=== PATIENT | female | born 1980 | race Caucasian/White ===

== ENCOUNTER → 2017-08-20 09:23 | Outpatient (CLI) | payer OTHER, SELFPAY ==
--- NOTE | 2017-08-20 09:28 | BI_ITS ---
MAMMOGRAPHY - BILATERAL DIAGNOSTIC REASON FOR EXAM: Female, 37 years old. CURRENT LT BB SIZED LUMP 1 MONTH PERTINENT HISTORY: BILAT DX - FAM HX OF PAT AUNT @ AGE 52 - LT INTRADUCTAL PAPILLOMA REMOVED 2008 - BREAST MRI IN THE PAST TECHNIQUE: Digital bilateral breast dilcia (3D mammographic acquisition) in the CC and MLO projections. 2-D mediolateral oblique (MLO) and craniocaudad (CC) views of both breasts were obtained. CAD: Full Field Digital Mammography with Computer Added Detection was performed. COMPARISON: None. FINDINGS: Breast Composition: The breasts are extremely dense, which lowers the sensitivity of mammography. There are no dominant masses or suspicious calcifications. The clinically palpable mass is not identified in this study further evaluation by ultrasound is recommended and would be performed on the same day. No other significant abnormalities are identified. BI/DIAG MAMM W/CAD, BILAT IMPRESSION: Further ultrasonographic evaluation recommended, as described above. (I) ASSESSMENT CATEGORY: BIRADS Category 0: Incomplete. Need additional imaging evaluation. A letter regarding these results will be sent to the patient by the facility within 30 days. Approximately 10% of breast cancers are not detected by mammography. A normal mammogram should not delay biopsy of a clinically suspicious abnormality. Electronically Signed: Iram Galicia MD at 12:24 EDT Tel , Service support ,
--- NOTE | 2017-08-20 09:29 | US_ITS ---
STUDY: ULTRASOUND BREAST - LEFT REASON FOR EXAM: Female, 37 years old. LT BRST- PALPABLE LUMP TECHNIQUE: Axial and longitudinal images of the LEFT breast were performed with a high resolution ultrasound transducer. COMPARISON: None. FINDINGS: LEFT Breast: There is a lesion in the upper part. The lesion measures 0.4 x 0.3 x 0.2 cm in size. Clock notation: 12 o'clock position. Distance from nipple: 1 cm. Posterior Enhancement: Yes. Posterior Shadowing: None. Margins: Sharp and smooth. Echogenicity: Anechoic. Compression effect on Shape: No change. US/Breast Limited Unilateral IMPRESSION: Benign appearing cyst in the area of palpable abnormality. ASSESSMENT CATEGORY: BIRADS Category 2: Benign. A letter regarding these results will be sent to the patient by the facility within 30 days. Electronically Signed: Iram Galicia MD at 15:33 EDT Tel , Service support ,
== END ==
PROVIDERS: Family Provider Family Medicine; PCP Family Medicine
DX: N63.0 Unspecified lump in unspecified breast (principal)
CPT/HCPCS: 76642; 77062; 77066; G0279

== ENCOUNTER → 2019-08-08 09:17 | Outpatient (CLI) | payer OTHER, SELFPAY ==
[2018-06-12 06:41] VITALS: BMI 22.6
--- NOTE | 2019-08-08 09:21 | BI_ITS ---
MAMMOGRAPHY - BILATERAL DIAGNOSTIC REASON FOR EXAM: Female, 39 years old. Left breast lump. PERTINENT HISTORY: History of prior excision of a left intraductal papilloma. TECHNIQUE: Digital bilateral breast dilcia (3D mammographic acquisition) in the CC and MLO projections. 2-D mediolateral oblique (MLO) and craniocaudad (CC) views of both breasts were obtained. CAD: Full Field Digital Mammography with Computer Added Detection was performed. COMPARISON: Comparison is made with prior study dated 04/22/2017 and October 07, 2012. FINDINGS: Breast Composition: The breasts are extremely dense, which lowers the sensitivity of mammography. There are no dominant masses or suspicious calcifications. No other significant abnormalities are identified. There has been no significant change since the prior study. BI/DIAG MAMM W/CAD, BILAT IMPRESSION: With the patient''s history of a palpable lump in the left breast, correlation with ultrasound is recommended. ASSESSMENT CATEGORY: BIRADS Category 0: Incomplete. Need additional imaging evaluation. A letter regarding these results will be sent to the patient by the facility within 30 days. Approximately 10% of breast cancers are not detected by mammography. A normal mammogram should not delay biopsy of a clinically suspicious abnormality. Electronically Signed: Anuj Rivera, at 12:28 EDT , Service support ,
--- NOTE | 2019-08-08 10:01 | US_ITS ---
STUDY: ULTRASOUND BREAST - LEFT REASON FOR EXAM: Female, 39 years old. Palpable lump left breast. TECHNIQUE: Axial and longitudinal images of the LEFT breast were performed with a high resolution ultrasound transducer. # OF IMAGES: 52 COMPARISON: Comparison is made with prior mammogram done earlier in the day as well as prior sonogram of the left breast dated August 20, 2017. FINDINGS: LEFT Breast: The upper outer quadrant of the left breast was examined by ultrasound. There is a 6 mm x 5 mm x 7 mm cyst at the 1:00 position of the breast at 3 cm from the nipple. There is also evidence of a 3 mm x 4 mm x 2 mm cyst at the 2:00 position of the breast at 4 cm from the nipple. Dense fibroglandular tissue. US/Breast Limited Unilateral IMPRESSION: 2 subcentimeters cysts are seen in the upper outer quadrant of the left breast. ASSESSMENT CATEGORY: BIRADS Category 2: Benign. A letter regarding these results will be sent to the patient by the facility within 30 days. Electronically Signed: Anuj Rivera, at 12:44 EDT , Service support ,
== END ==
PROVIDERS: PCP Family Medicine
DX: N63.21 Unspecified lump in the left breast, upper outer quadrant (principal)
CPT/HCPCS: 76642; 77062; 77066; G0279

== ENCOUNTER → 2022-02-03 | Outpatient (CLI) | payer OTHER, SELFPAY ==
--- NOTE | 2022-02-03 12:37 | VDLE_ITS ---
Reason For Study: LLE pain RIGHT LEFT CFV is compressible, spontaneous, phasic, competent GSV is normal. and demonstrates normal augmentation. CFV is compressible, spontaneous, Procedure phasic, competent, and demonstrates This is a venous duplex using B-mode, color flow normal augmentation. and spectral Doppler. FV is compressible, spontaneous, phasic, Exam performed in department. 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 augmentation. The exam was diagnostic. POP V is compressible, spontaneous, A preliminary report was called and/or faxed to phasic, competent and demonstrates Ashley Wallace:Hugh Edmonds. normal augmentation. T/P Trunk is compressible. PTV is compressible. LT PerV is compressible. VL/Venous Duplex US, Unilateral Interpretation Summary Deep veins of the left lower extremity are patent and compressible segmentally. There is no evidence of left lower extremity deep vein thrombosis. Valvular competence appears intac t within the proximal deep venous system on the left . The left great saphenous vein appears patent a nd compressible segmentally. Ordering Physician: ASHLEY WALLACE Referring Physician: Santiago Edmonds Performed By: Fanta Toledo, NEERAJ, RVT
[2022-02-03 14:59] LABS: Hematocrit 40.4 % (37-47); Hemoglobin 13.1 g/dL (12.0-15.0); Mean Corp Hgb Conc 32.4 g/dL (32-36); Mean Corpuscular Hgb 29.5 pg (27.0-32.0); Mean Platelet Vol. 11.4 fl (6.2-12.0); Platelet Count 200 K/mm3 (150-450); RBC Distribution Width CV 12.5 % (11.6-14.6); RBC Distribution Width SD 41.5 fl (35.1-43.9); Red Blood Count 4.44 M/mm3 (4.2-5.4); White Blood Count 10.3 K/mm3 (4.4-11.0)
[2022-02-03 15:18] LABS: AST(SGOT) 16 U/L (15-37); Alanine Aminotransfer ALT/SGPT 20 U/L (13-56); Albumin, Serum 3.6 g/dL (3.2-5.0); Alkaline Phosphatase 74 U/L (45-117); Anion Gap 8 (5-15); BUN 5 mg/dL (7-18); BUN/Creat Ratio 6.4 RATIO (10-20); Chloride 104 mmol/L (98-107); Creatinine, Serum 0.78 mg/dL (0.55-1.02); EST Glomerular Filtration Rate 87 mL/min (>60); Est Glom Filt Rate - Afr Amer 106 mL/min (>60); Globulin 3.6 g/dL (2.2-4.2); Glucose 91 mg/dL (74-106); Potassium 4.1 mmol/L (3.5-5.1); Protein, Total 7.2 g/dL (6.4-8.2); Sodium Level 140 mmol/L (136-145)
== END | disposition home or self-care (01) ==
PROVIDERS: PCP Family Medicine; Referring Provider Nurse Practitioner Family; Visit Provider Nurse Practitioner Family
DX: M79.605 Pain in left leg (principal); U07.1 COVID-19; R60.0 Localized edema
CPT/HCPCS: 36415; 80053; 85027; 85379; 86140; 93971

== ENCOUNTER → 2023-11-23 | Outpatient (CLI) | payer BC, SELFPAY ==
[2023-11-23 15:50] LABS: Absolute Lymphocyte Count 1.83 X10^3/uL (0.83-4.51); Absolute Neutrophil Count 4.1 X10^3/uL (2.0-7.7); Basophil# 0.02 X10^3/uL; Basophil% 0.3 % (0-1); Eosinophil# 0.17 X10^3/uL; Eosinophils% 2.6 % (0-5); Hematocrit 41.2 % (37-47); Hemoglobin 13.5 g/dL (12.0-15.0); Lymphocyte # 1.83 X10^3/ul (0.83-4.51); Lymphocyte % 27.9 % (19-41); Mean Corp Hgb Conc 32.8 g/dL (32-36); Mean Corpuscular Hgb 29.2 pg (27.0-32.0); Mean Corpuscular Volume 89.2 fL (81-99); Mean Platelet Vol. 11.3 fl (6.2-12.0); Monocyte# 0.38 X10^3/uL; Monocyte% 5.8 % (0-10); NRBC Flagged by Analyzer 0 % (0-5); Neutrophil # 4.14 X10^3/uL (2.7-7.7); Neutrophil % 63.1 % (47-70); Platelet Count 194 K/mm3 (150-450); RBC Distribution Width SD 39.2 fl (35.1-43.9); Red Blood Count 4.62 M/mm3 (4.2-5.4); White Blood Count 6.6 K/mm3 (4.4-11.0)
[2023-11-23 16:05] LABS: Erythrocyte Sedimentation Rate 1 mm/hr (0-30)
[2023-11-23 16:41] LABS: AST(SGOT) 17 U/L (15-37); Alanine Aminotransfer ALT/SGPT 24 U/L (13-56); Albumin, Serum 3.9 g/dL (3.2-5.0); Alkaline Phosphatase 83 U/L (45-117); Anion Gap 5 (5-15); BUN 14 mg/dL (7-18); BUN/Creat Ratio 15.9 RATIO (10-20); CRP < 2.90 mg/L (0.0-3.0); Calcium,Total 9.2 mg/dL (8.5-10.1); Chloride 106 mmol/L (98-107); Creatinine, Serum 0.88 mg/dL (0.55-1.02); EST Glomerular Filtration Rate 75 mL/min (>60); Est Glom Filt Rate - Afr Amer 91 mL/min (>60); Free T3 2.7 pg/mL (2.18-3.98); Glucose 92 mg/dL (74-106); LDH 159 U/L (84-246); Potassium 3.6 mmol/L (3.5-5.1); Protein, Total 7.9 g/dL (6.4-8.2); Sodium Level 138 mmol/L (136-145); T4 Free Direct 1.06 ng/dL (0.76-1.46); Thyroid Stim Hormone (TSH) 0.888 uIU/mL (0.358-3.740)
[2023-11-28 02:06] LABS: Anti-Centromere B Ab <0.2 AI (0.0-0.9); Anti-Chromatin <0.2 AI (0.0-0.9); Anti-Jo <0.2 AI (0.0-0.9); Anti-Scleroderma-70 AB <0.2 AI (0.0-0.9); Anti-dsDNA Ab 4 IU/mL (0-9); Beef <0.10 kU/L (Class 0); Chocolate <0.10 kU/L (Class 0); Codfish <0.10 kU/L (Class 0); Corn 0.21 kU/L (Class 0/I); Egg, Whole <0.10 kU/L (Class 0); Milk (Cow) <0.10 kU/L (Class 0); Mussels <0.10 kU/L (Class 0); Peanut 0.13 kU/L (Class 0/I); Pork 0.85 kU/L (Class II); RNP Ab 0.2 AI (0.0-0.9); SJOGREN'S Anti-SS-A test < 0.2 AI (0.0-0.9); SJOGREN'S Anti-SS-B test < 0.2 AI (0.0-0.9); Salmon <0.10 kU/L (Class 0); Shrimp <0.10 kU/L (Class 0); Smith Ab <0.2 AI (0.0-0.9); Soybean 0.13 kU/L (Class 0/I); Tuna <0.10 kU/L (Class 0); Wheat 0.21 kU/L (Class 0/I)
[2023-11-29 15:08] LABS: ACCA 5 units (0-90); ALCA 4 units (0-60); AMCA 29 units (0-100); Albumin 4.4 g/dL (2.9-4.4); Alpha-1-Globulins 0.2 g/dL (0.0-0.4); Alpha-2-Globulins 0.6 g/dL (0.4-1.0); Cytoplasmic Ab (C-ANCA) <1:20 titer (Neg:<1:20); Endomysial Antibody IgA Negative (Negative); Gamma Globulin 1.5 g/dL (0.4-1.8); Immunoglobulin A 135 mg/dL (87-352); Immunoglobulin E 139 IU/mL (6-495); Immunoglobulin G 1646 mg/dL (586-1602); Immunoglobulin M 133 mg/dL (26-217); PROEL- TOTAL PROTEIN 7.7 g/dL (6.0-8.5); Perinuclear Ab (P-ANCA) <1:20 titer (Neg:<1:20); gASCA 22 units (0-50); t-Transglutaminase IgA <2 U/mL (0-3)
== END | disposition home or self-care (01) ==
LOC: LAB 14:57
PROVIDERS: PCP Registered Nurse
DX: R19.7 Diarrhea, unspecified (principal)
CPT/HCPCS: 36415; 80053; 82784; 82785; 83516; 83615; 84165; 84439; 84443; 84481; 85025; 85652; 86003; 86005; 86036; 86140; 86225; 86235; 86255; 86256; 86334; 86671

== ENCOUNTER → 2023-11-25 | Outpatient (CLI) | payer BC, SELFPAY ==
[2023-11-29 03:06] LABS: Pancreatic Elastase, Fecal > 800 (>200)
[2023-11-30 22:07] LABS: Calprotectin, Stool 10 ug/g (0-120)
== END | disposition home or self-care (01) ==
LOC: LABSPEC 13:32
PROVIDERS: PCP Registered Nurse
DX: R19.7 Diarrhea, unspecified (principal)
CPT/HCPCS: 82653; 83630; 83993

== ENCOUNTER → 2023-12-31 | Outpatient (CLI) | payer BC, SELFPAY ==
--- OUTSIDE RECORDS SUMMARY | 2023-12-31 07:06 | XMS RPT_ITS | CCD ---
Author Organization [facility] Care Team Providers Care Adon Name Role Phone JOAQUIM KYES Primary Care Physician Hugh Edmonds MD Primary Care Provider Hugh Edmonds MD Primary Care Provider Hugh Edmonds MD Primary Care Provider Hugh Edmonds MD Primary Care Provider Hugh Edmonds MD Primary Care Provider TIKI FOX Referring Unavailable IRINA, MAHENDRAER B Primary Care Unavailabl e WISWELL, TIKI Referring Unavailable IRINA, MAHENDRAER B Primary Care Unavailabl e DOMINIQUE, TIKI Attending Unavailable IRINA, MAHENDRAER B Primary Care Unavailabl e WISWELL, TIKI Referring Unavailable IRINA, AFUAOPHER B Primary Care Unavailabl e WISWELL, TIKI Referring Unavailable RANHEYDI, AFUAOPHER B Primary Care Unavailabl e WISWELL, TIKI Referring Unavailable RANHEYDI, CHRISTOPHER B Primary Care Unavailabl e DOMINIQUE, TIKI Attending Unavailable IRINA, MAHENDRAER B Primary Care Unavailabl e PETE HURTADO Referring Unavailable IRINA, MAHENDRAER B Primary Care Unavailabl e BALJINDER HERNANDEZ Primary Care Physi carla BALJINDER HERNANDEZ Attending Un available BALJINDER HERNANDEZ Primary Care Un available BALJINDER HERNANDEZ Primary Care Un available BALJINDER HERNANDEZ Attending Un available Allergies Allergy Classification Reported Allergen(s) Allergy Type Date of Onset Reaction(s) Facility (16 sources) Metoclopramide; Translations: [metoclopramide] Drug Allergy 10-13-201 1 Alteration in heart rate (finding), Other: See Comments [facility] Work Phone: (5 sources) Sulfonamides (Antibiotic); Translations: [sulfa drugs] Drug allergy Weal (disorder) [facility] Work Phone: (11 sources) Sulfamethoxazole / Trimethoprim; Translations: [SULFAMETHOXAZOLE-TR IMETHOPRIM] Drug Allergy 6 Hives [facility] Work Phone: Medications Current Medications Medication Drug Class(es) Dates Sig (Normalized) Sig (Original) azithromycin 250 mg oral tablet (1 source) Macrolide Antimicrobial Start: 02-04-2022 End: 02-09-2022 azithromycin 250 mg oral tablet Take two (2) tablets day 1-then one (1) tablet, Oral, Daily, X 5 day(s), # 6 tab(s), 0 Refill(s), 02/09/22 11:09:00 EST, Pharmacy: [id number], Acute tonsillitis, 167.6, cm, 05/21/21 9:26:00 EDT, Height, 72.7 Start Date: 02/04/22 Stop Date: 02/09/22 Status: Ordered cetirizine hydrochloride 10 mg oral tablet (8 sources) Histamine-1 Receptor Antagonist Start: 02-01-2022 End: 03-23-2024 Zyrtec 10 mg oral tablet Dose : 10 mg = 1 tab(s), Oral, qDay, # 90 tab(s), 3 Refill(s), Pharmacy: [facility], Allergies, 167.6, cm, 03/29/23 13:00:00 EST, Height, kg, 03/29/23 13:00:00 EST, Dosing Weight Start Date: 03/29/23 Stop Date: 03/23/24 Status: Ordered Comment on above: Take 10 mg by mouth once daily. sertraline 50 mg oral tablet (2 sources) Serotonin Reuptake Inhibitor Start: 06-28-2021 End: 06-23-2022 sertraline 25 mg oral tablet Dose : 25 mg = 1 tab(s), Oral, qDay, # 90 tab(s), 3 Refill(s), Pharmacy: [id number], 167.6, cm, 05/21/21 9:26:00 EDT, Height Start Date: 06/28/21 Stop Date: 06/23/22 Status: Ordered Start: 06-28-2021 End: 06-23-2022 sertraline 50 mg oral tablet Dose : 50 mg = 1 tab(s), Oral, qDay, # 90 tab(s), 3 Refill(s), Pharmacy: [facility], 167.6, cm, 05/21/21 9:26:00 EDT, Height, kg, 05/21/21 9:26:00 EDT, Dosing Weight Start Date: 06/28/21 Stop Date: 06/23/22 Status: Ordered traZODone hydrochloride 50 mg oral tablet (1 source) Serotonin Reuptake Inhibitor Start: 08-14-2020 traZODone 50 mg oral tablet Dose : 50 mg = 1 tab(s), Oral, qHS, # 30 tab(s), 0 Refill(s), Pharmacy: [facility]/pharmacy #[id number], 167.6, cm, 03/25/20 15:37:00 EST, Height, kg, 03/25/20 15:37:00 EST, Dosing Weight Start Date: 08/14/20 Status: Ordered Completed/Discontinued Medications Medication Drug Class(es) Dates Sig (Normalized) Sig (Original) 24 hr buPROPion hydrochloride 150 mg extended release oral tablet (11 sources) Aminoketone Start: 09-01-2023 End: 10-31-2023 Wellbutrin XL 150 mg/24 hours oral tablet, extended release Dose : 150 mg = 1 tab(s), Oral, q24h, Discontinue 300 mg tablet and start 150 mg, plan to try for at least 1 month then may need to adjust, # 30 tab(s), 1 Refill(s), Pharmacy: [facility], LELA (generalized anxiety disorder), 167.6, cm, 03/29/23 13:00:00 EST, Height, kg, 03/29/23 13:00:00 EST, Dosing Weight Start Date: 09/01/23 Stop Date: 10/31/23 Status: Ordered Start: 03-29-2023 End: 03-23-2024 take 1 tablet by mouth every hour, then take 1 tablet by mouth every twenty-four hours buPROPion 300 mg/24 hours (XL) oral tablet, extended release Dose : 300 mg = 1 tab(s), Oral, q24h, # 90 tab(s), 3 Refill(s), Pharmacy: [facility], 167.6, cm, 03/29/23 13:00:00 EST, Height, kg, 03/29/23 13:00:00 EST, Dosing Weight Start Date: 03/29/23 Stop Date: 03/23/24 Status: Ordered Start: 12-09-2021 End: 06-07-2022 take 1 tablet by mouth every hour, then take 1 tablet by mouth every twenty-four hours Wellbutrin XL 150 mg/24 hours oral tablet, extended release Dose : 150 mg = 1 tab(s), Oral, q24h, # 90 tab(s), 1 Refill(s), Pharmacy: [facility], LELA (generalized anxiety disorder), 167.6, cm, 05/21/21 9:26:00 EDT, Height, kg, 05/21/21 9:26:00 EDT, Dosing Weight Start Date: 12/09/21 Stop Date: 06/07/22 Status: Ordered Start: 08-28-2021 take 1 tablet by mouth once da mateusz buPROPion XL (WELLBUTRIN XL) 300 mg 24 hr tablet Take 300 mg by mouth once daily. 0 08/28/2021 Active Comment on above: Take 300 mg by mouth once daily. Lactobacillus acidophilus (10 sources) LACTOBACILLUS ACIDOPHILUS (PROBIOTIC ORAL) Take by mouth. 0 Active Comment on above: Take by mouth. multivitamin tablet (10 sources) take 1 tablet by mouth once daily multivitamin tablet Take 1 tablet by mouth once daily. 0 Active Comment on above: Take 1 tablet by anabelle th once daily. Surgical Lubricant Jelly gel (4 sources) Start: 02-19-20 Surgical Lubricant Jelly gel For MRI Female Pelvis, MRI department to provide. Administer intra-vaginal Surgilube immediately prior the MRI procedure (total amount to patient toleranace). 3 g 0 02/18/2023 Active Comment on above: For MRI Female Pelvi s, MRI department to provide. Administer intra-vaginal Surgilube immediately prior the MRI procedure (total amount to patient toleranace). Problems Active Problems Problem Classification Problem Date Documented Date Episodic/Chronic Immunizations and screening for infectious disease (4 sources) Patient encounter status; Translations: [Encounter for screening for human papillomavirus (HPV)] Episodic Mood disorders (12 sources) Major depressive disorder; Translations: [Major depressive disorder, single episode, unspecified] Onset: 09-28-2011 09-28-2011 Chronic Noninfectious gastroenteritis (2 sources) Noninfective gastroenteritis and colitis, unspecified; Translations: [Noninfective gastroenteritis and colitis, unspecified] Onset: 11-04-2023 Episodic Nonmalignant breast conditions (10 sources) Fibrocystic disease of breast; Translations: [Diffuse cystic mastopathy of unspecified breast] Onset: 11-22-2006 11-22-2006 Chronic Other connective tissue disease (3 sources) Pain in left lower limb 02-03-2022 Episodic Other female genital disorders (1 source) Vaginal discharge; Translations: [Other specified noninflammatory disorders of vagina] Episodic Other female genital disorders (1 source) History of gynecological disorder; Translations: [Personal history of other diseases of the female genital tract] 06-11-2023 Episodic Other screening for suspected conditions (not mental disorders or infectious disease) (8 sources) D-dimer above reference range; Translations: [Elevated C-reactive protein] Onset: 06-25-2022 02-06-2022 Episodic Residual codes; unclassified (3 sources) Edema of left lower limb 02-03-2022 Episodic Residual codes; unclassified (1 source) Family history of endometriosis in first degree relative; Translations: [Family history of other diseases of the genitourinary system] 06-11-2023 Episodic Unclassified (2 sources) Patient encounter status 03-29-2023 Viral infection (3 sources) Disease caused by 2019-nCoV 02-03-2022 Past or Other Problems Problem Classification Problem Date Documented Da te Episodic/Chronic Abdominal pain (15 sources) Chronic pelvic pain of female; Translations: [Pelvic and perineal pain] Onset: 02-03-2017 02-03-2017 Episodic Ovarian cyst (1 source) Other ovarian cyst, unspecified side; Translations: [Ovarian cyst, complex] Onset: 02-22-2023 Episodic Results Test Name Value Interpretation Reference Range Facility [facility] 11-05-2023 Adenovirus F 40/41 Not detected Normal Not Detected [facility] ([place]) Comment on above: Performed By: #### S TGIPCR #### [place] [address] #### CDIFPCR #### [address] [address] Astrovirus Not detected Normal Not Detected Pending sale to [facility] ([place]) Comment on above: Performed By: #### S TGIPCR #### [place] [address] #### CDIFPCR #### [address] [address] Campy (jejuni/coli/ups) Not detected Normal Not Detected [facility] ([place]) Comment on above: Performed By: #### S TGIPCR #### [place] [address] #### CDIFPCR #### [address] [address] Cryptosporidium Not detected Normal Not Detected [facility] ([place]) Comment on above: Performed By: #### S TGIPCR #### [place] [address] #### CDIFPCR #### [address] [address] Cyclospora Not detected Normal Not Detected Pending sale to [facility] ([place]) Comment on above: Performed By: #### S TGIPCR #### [place] [address] #### CDIFPCR #### [address] [address] E. coli (ETEC) Not detected Normal Not Detected [facility] ([place]) Comment on above: Performed By: #### S TGIPCR #### [place] [address] #### CDIFPCR #### [address] [address] E. coli O157 Not Applicable Normal Not Detected [facility] ([place]) Comment on above: Performed By: #### S TGIPCR #### [place] [id number] #### CDIFPCR #### [address] [address] Entamoeba histolytica Not detected Normal Not Detected [facility] ([place]) Comment on above: Performed By: #### S TGIPCR #### [place] [address] #### CDIFPCR #### [address] [address] Enteroaggregative E. coli (EAEC) Not detected Normal Not Detected [facility] ([place]) Comment on above: Performed By: #### S TGIPCR #### [place] [address] #### CDIFPCR #### [address] [address] Enteropathogenic E. coli (EPEC) Not detected Normal Not Detected [facility] ([place]) Comment on above: Performed By: #### S TGIPCR #### [place] [address] #### CDIFPCR #### [address] [address] Giardia lamblia Not detected Normal Not Detected [facility] ([place]) Comment on above: Performed By: #### S TGIPCR #### [place] [id number] #### CDIFPCR #### [address] [address] Norovirus GI/GII Not detected Normal Not Detected [facility] ([place]) Comment on above: Result Comment: T he dowel setting machine operator of the Stool GI PCR panel has identified an increase of potential false positive results for Norovirus. A Norovirus positive result should correlate with the patient?s clinical history and presentation, along with travel history and disease severity. Performed By: #### S TGIPCR #### [place] [address] #### CDIFPCR #### [address] [address] Plesiomonas shigelloides Not detected Normal Not Detected [facility] ([place]) Comment on above: Performed By: #### S TGIPCR #### [place] [address] #### CDIFPCR #### [address] [address] Rotavirus A Not detected Normal Not Detected [facility] ([place]) Comment on above: Performed By: #### S TGIPCR #### [place] [address] #### CDIFPCR #### [address] [address] Salmonella species, stool Not detected Normal Not Detected [facility] ([place]) Comment on above: Performed By: #### S TGIPCR #### [place] [address] #### CDIFPCR #### [address] [address] Sapovirus I,II,IV,V Not detected Normal Not Detected A [facility] ([place]) Comment on above: Performed By: #### S TGIPCR #### [place] [address] #### CDIFPCR #### [address] [address] Shig Tox E. coli (STEC) Not detected Normal Not Detected [facility] ([place]) Comment on above: Performed By: #### S TGIPCR #### [place] [address] #### CDIFPCR #### [address] [address] Shigella/Enteroinvasi ve E. coli (EIEC) Not detected Normal Not Detected [facility] ([place]) Comment on above: Performed By: #### S TGIPCR #### [place] [id number] #### CDIFPCR #### [place] [address] Stool GI Comment See Comment Normal [facility] ([place]) Comment on above: Result Comment: Viru s, bacteria, and parasite nucleic acid may persist in vivo independently of organism viability. Negative Film Array GI panel results in the setting of clinical illness compatible with gastroenteritis may be due to infection by pathogens that are not detected by this test. False negatives may occur due to genetic variability in the region targeted by the primers. Performed By: #### S TGIPCR #### [place] [address] #### CDIFPCR #### [place] [address] Vibrio cholerae Not detected Normal Not Detected [facility] ([place]) Comment on above: Performed By: #### S TGIPCR #### [place] [address] #### CDIFPCR #### [place] [address] Vibrio par/vul/chol Not detected Normal Not Detected A [facility] ([place]) Comment on above: Performed By: #### S TGIPCR #### [place] [address] #### CDIFPCR #### [place] [address] Yersinia enterocolitica Not detected Normal Not Detected [facility] ([place]) Comment on above: Performed By: #### S TGIPCR #### [place] [address] #### CDIFPCR #### [place] [address] CDIFPCRon 11-04-2023 Clostridium difficile PCR Negative Normal Negative [facility] ([place]) Comment on above: Performed By: #### S TGIPCR #### [place] [address] #### CDIFPCR #### [place] [address] Clostridium difficile PCR Int Normal [facility] ([place]) Comment on above: Result Comment: No t cdB gene DNA detected. Negative test results may occur from improper collection, handling or storage of specimen, technical error, or extremely low levels of target below the limit of detection of the assay. See Below Performed By: #### S TGIPCR #### [place] [id number] #### CDIFPCR #### [facility] [address], [place] [address] LABORATORYOrdered By: Haven Amezcua on 11-04-2023 Adenovirus 40+41 DNA ALBERTINA+non-probe Ql (Stl) Not Detected *NA* (11/04/23 2:53 PM) Invalid Interpretation Code Not Detected AH Auto Microbiology GL SS Astrovirus subtypes 1-8 RNA ALBERTINA+non-probe Ql (Stl) Not Detected *NA* (11/04/23 2:53 PM) Invalid Interpretation Code Not Detected AH Auto Microbiology GL SS C. cayetanensis DNA ALBERTINA+non-probe Ql (Stl) Not Detected *NA* (11/04/23 2:53 PM) Invalid Interpretation Code Not Detected AH Auto Microbiology GL SS C. coli+jejuni+upsaliens is DNA ALBERTINA+non-probe Ql (Stl) Not Detected *NA* (11/04/23 2:53 PM) Invalid Interpretation Code Not Detected AH Auto Microbiology GL SS Cryptosporidium sp DNA ALBERTINA+non-probe Ql (Stl) Not Detected *NA* (11/04/23 2:53 PM) Invalid Interpretation Code Not Detected AH Auto Microbiology GL SS E. coli enteroaggregative Toñito plasmid aggR+aatA genes ALBERTINA+non-probe Ql (Stl) Not Detected *NA* (11/04/23 2:53 PM) Invalid Interpretation Code Not Detected AH Auto Microbiology GL SS E. coli enteropathogenic eae gene ALBERTINA+non-probe Ql (Stl) Not Detected *NA* (11/04/23 2:53 PM) Invalid Interpretation Code Not Detected AH Auto Microbiology GL SS E. coli enterotoxigenic ltA+st1a+st1b genes ALBERTINA+non-probe Ql (Stl) Not Detected *NA* (11/04/23 2:53 PM) Invalid Interpretation Code Not Detected AH Auto Microbiology GL SS E. coli O157 DNA ALBERTINA+non-probe Ql (Stl) Not Applicable (11/04/23 2:53 PM) Normal Not Detected AH Auto Microbiology GL SS E. coli stx1+stx2 genes ALBERTINA+non-probe Ql (Stl) Not Detected *NA* (11/04/23 2:53 PM) Invalid Interpretation Code Not Detected AH Auto Microbiology GL SS E. histolytica DNA ALBERTINA+non-probe Ql (Stl) Not Detected *NA* (11/04/23 2:53 PM) Invalid Interpretation Code Not Detected AH Auto Microbiology GL SS G. lamblia DNA ALBERTINA+non-probe Ql (Stl) Not Detected *NA* (11/04/23 2:53 PM) Invalid Interpretation Code Not Detected AH Auto Microbiology GL SS Norovirus genogroup I+II RNA ALBERTINA+non-probe Ql (Stl) Not Detected 1 *NA* (11/04/23 2:53 PM) Invalid Interpretation Code Not Detected AH Auto Microbiology GL SS Comment on above: Result Comment: T he dowel setting machine operator of the Stool GI PCR panel has identified an increase of potential false positive results for Norovirus. A Norovirus positive result should correlate with the patient s clinical history and presentation, along with travel history and disease severity. Plesiomonas shigelloides Not Detected *NA* (11/04/23 2:53 PM) Invalid Interpretation Code Not Detected AH Auto Microbiology GL SS Rotavirus A RNA ALBERTINA+non-probe Ql (Stl) Not Detected *NA* (11/04/23 2:53 PM) Invalid Interpretation Code Not Detected AH Auto Microbiology GL SS S. enterica+bongori DNA ALBERTINA+non-probe Ql (Stl) Not Detected *NA* (11/04/23 2:53 PM) Invalid Interpretation Code Not Detected AH Auto Microbiology GL SS Sapovirus genogroups I+II+IV+V RNA ALBERTINA+non-probe Ql (Stl) Not Detected *NA* (11/04/23 2:53 PM) Invalid Interpretation Code Not Detected AH Auto Microbiology GL SS Shigella species+EIEC invasion plasmid antigen H ipaH gene ALBERTINA+non-probe Ql (Stl) Not Detected *NA* (11/04/23 2:53 PM) Invalid Interpretation Code Not Detected AH Auto Microbiology GL SS Stool GI Comment See Comment 2 (11/04/23 2:53 PM) Normal AH Auto Microbiology GL SS Comment on above: Interpretive Data: V irus, bacteria, and parasite nucleic acid may persist in vivo independently of organism viability. Negative Film Array GI panel results in the setting of clinical illness compatible with gastroenteritis may be due to infection by pathogens that are not detected by this test. False negatives may occur due to genetic variability in the region targeted by the primers. V. cholerae DNA ALBERTINA+non-probe Ql (Stl) Not Detected *NA* (11/04/23 2:53 PM) Invalid Interpretation Code Not Detected AH Auto Microbiology GL SS V. cholerae+parahaemolyt icus+vulnificus DNA ALBERTINA+non-probe Ql (Stl) Not Detected *NA* (11/04/23 2:53 PM) Invalid Interpretation Code Not Detected AH Auto Microbiology GL SS Y. enterocolitica DNA ALBERTINA+non-probe Ql (Stl) Not Detected *NA* (11/04/23 2:53 PM) Invalid Interpretation Code Not Detected Auto Microbiology GL SS LABORATORYOrdered By: Ariella Braun on 11-04-2023 Clostridium difficile PCR Negative (11/04/23 2:53 PM) Normal Negative AO Auto Urine SS Clostridium difficile PCR Int No tcdB gene DNA detected. Negative test results may occur from improper collection, handling or storage of specimen, technical error, or extremely low levels of target below the limit of detection of the assay. Invalid Interpretation Code AO Auto Urine SS No Panel Informationon 11-03 Culture Stool Normal stool donald present - coliforms absent. Salmonella: Negative Shigella: Negative Campylobacter: Negative [facility] Comment on above: Requests for alterna tive pathogens including Yersinia, E. coli 0157, C. difficile toxin, Rotavirus, Giardia and parasites require specific requests. .Auto Diffon 11-03-2023 Basophil, Absolute 0.0 10 3/mcL Normal 0.0-0.2 [facility] ([place]) Comment on above: Performed By: #### C BC, ADIFF, ANEU, GFR, CMP #### [facility] [address], [place] [address] Basophils/100 WBC (Bld) 0.5 % Normal 0.0-2.5 [facility] ([place]) Comment on above: Performed By: #### C BC, ADIFF, ANEU, GFR, CMP #### [address] [address] Eosinophil, Absolute 0.2 10 3/mcL Normal 0.0-0.4 [facility] ([place]) Comment on above: Performed By: #### C BC, ADIFF, ANEU, GFR, CMP #### [address] [address] Eosinophils/100 WBC (Bld) 2.4 % Normal 0.0-7.0 [facility] ([place]) Comment on above: Performed By: #### C BC, ADIFF, ANEU, GFR, CMP #### [address] [address] Lymphocyte, Absolute 1.7 10 3/mcL Normal 0.8-3.9 [facility] ([place]) Comment on above: Performed By: #### C BC, ADIFF, ANEU, GFR, CMP #### [address] [address] Lymphocytes/100 WBC (Bld) 26.7 % Normal 10.0-50.0 [facility] ([place]) Comment on above: Performed By: #### C BC, ADIFF, ANEU, GFR, CMP #### [address] [address] Monocyte, Absolute 0.4 10 3/mcL Normal 0.2-1.0 [facility] ([place]) Comment on above: Performed By: #### C BC, ADIFF, ANEU, GFR, CMP #### [address] [address] Monocytes/100 WBC (Bld) 7.1 % Normal 1.7-13.0 [facility] ([place]) Comment on above: Performed By: #### C BC, ADIFF, ANEU, GFR, CMP #### [address] [address] Neutrophils/100 WBC (Bld) 63.3 % Normal 37.0-80.0 [facility] ([place]) Comment on above: Performed By: #### C BC, ADIFF, ANEU, GFR, CMP #### [address] [address] .GFRon 11-03-2023 GFR 94 ml/min/1.73sqm Normal [facility] ([place]) Comment on above: Result Comment: GFR Population mean for , Non- Americans Ages 20-29 = 116 mL/min/1.73 sq.m. Ages 30-39 = 107 mL/min/1.73 sq.m. Ages 40-49 = 99 mL/min/1.73 sq.m. Ages 50-59 = 93 mL/min/1.73 sq.m. Ages 60-69 = 85 mL/min/1.73 sq.m. Ages 70+ = 75 mL/min/1.73 sq.m. Chronic Kidney Disease: Less than 60 mL/min/1.73 square meters End Stage Renal Disease: Less than 15 mL/min/1.73 square meters Performed By: #### C CARRIE ROGER ANEU, GFR, CMP #### [address] [address] GFR Non- 78 ml/min/1.73sqm Normal [facility] ([place]) Comment on above: Result Comment: GFR Population mean for , Non- Americans Ages 20-29 = 116 mL/min/1.73 sq.m. Ages 30-39 = 107 mL/min/1.73 sq.m. Ages 40-49 = 99 mL/min/1.73 sq.m. Ages 50-59 = 93 mL/min/1.73 sq.m. Ages 60-69 = 85 mL/min/1.73 sq.m. Ages 70+ = 75 mL/min/1.73 sq.m. Chronic Kidney Disease: Less than 60 mL/min/1.73 square meters End Stage Renal Disease: Less than 15 mL/min/1.73 square meters Performed By: #### C BCCARRIE, ANEU, GFR, CMP #### [address] [address] .NEUABSon 11-03-2023 Neutrophil, Absolute 4.0 10 3/mcL Normal 2.9-6.2 [facility] ([place]) Comment on above: Performed By: #### C BC, ADIFF, ANEU, GFR, CMP #### [place] [address] CBCon 11-03-2023 Erythrocyte distribution width (RBC) [Ratio] 12.8 % Normal 11.5-14.5 [facility] ([place]) Comment on above: Performed By: #### C BC, ADIFF, ANEU, GFR, CMP #### [place] [address] Hematocrit (Bld) [Volume fraction] 41.8 % Normal 37.0-47.0 [facility] ([place]) Comment on above: Performed By: #### C BC, ADIFF, ANEU, GFR, CMP #### [place] [id number] Hgb 14.2 G/dL Normal 12.0-16.0 [facility] ([place]) Comment on above: Performed By: #### C BC, ADIFF, ANEU, GFR, CMP #### [place] [id number] MCH (RBC) [Entitic mass] 30.7 pg Normal 27.0-31.2 [facility] ([place]) Comment on above: Performed By: #### C BC, ADIFF, ANEU, GFR, CMP #### [place] [address] MCHC 34.0 G/dL Normal 33.0-37.0 [facility] ([place]) Comment on above: Performed By: #### C BC, ADIFF, ANEU, GFR, CMP #### [place] [address] MCV (RBC) [Entitic vol] 90.3 fL Normal 80.0-94.0 [facility] ([place]) Comment on above: Performed By: #### C BC, ADIFF, ANEU, GFR, CMP #### [address] [address] Platelet 178 10 3/mcL Normal 130-400 [facility] ([place]) Comment on above: Performed By: #### C BC, ADIFF, ANEU, GFR, CMP #### [address] [address] Platelet mean volume (Bld) [Entitic vol] 9.5 fL Normal 7.4-10.4 [facility] ([place]) Comment on above: Performed By: #### C BC, ADIFF, ANEU, GFR, CMP #### [address] [address] RBC 4.63 10 6/mcL Normal 4.20-5.40 [facility] ([place]) Comment on above: Performed By: #### C BC, ADIFF, ANEU, GFR, CMP #### [place] [id number] WBC 6.3 10 3/mcL Normal 4.6-10.8 [facility] ([place]) Comment on above: Performed By: #### C BC, ADIFF, ANEU, GFR, CMP #### [address] [address] CMPon 11-03-2023 Albumin Level 4.0 G/dL Normal 3.5-5.0 [facility] ([place]) Comment on above: Performed By: #### C BC, ADIFF, ANEU, GFR, CMP #### [address] [address] Albumin/Globulin [Mass ratio] 1.1 {ratio} Normal 1.1-2.5 [facility] ([place]) Comment on above: Performed By: #### C BC, ADIFF, ANEU, GFR, CMP #### [address] [address] ALP [Catalytic activity/Vol] 70 U/L Normal 40-135 [facility] ([place]) Comment on above: Performed By: #### C BC, ADIFF, ANEU, GFR, CMP #### [address] [address] ALT [Catalytic activity/Vol] 29 U/L Normal 14-59 [facility] ([place]) Comment on above: Performed By: #### C BC, ADIFF, ANEU, GFR, CMP #### [address] [address] AST [Catalytic activity/Vol] 18 U/L Normal 10-40 [facility] ([place]) Comment on above: Performed By: #### C BC, ADIFF, ANEU, GFR, CMP #### [address] [address] Bili Total 0.7 mg/dL Normal 0.2-1.0 [facility] ([place]) Comment on above: Result Comment: Use of this assay is not recommended for patients undergoing treatment with eltrombopag due to the potential for falsely elevated results. Performed By: #### C BC, ADIFF, ANEU, GFR, CMP #### [address] [address] BUN/Creatinine Ratio 10 ratio Normal 7-27 [facility] ([place]) Comment on above: Performed By: #### C BC, ADIFF, ANEU, GFR, CMP #### [address] [address] Calcium [Mass/Vol] 9.3 mg/dL Normal 8.4-10.2 [facility] ([place]) Comment on above: Performed By: #### C BC, ADIFF, ANEU, GFR, CMP #### [address] [address] Chloride [Moles/Vol] 102 mmol/L Normal 98-107 [facility] ([place]) Comment on above: Performed By: #### C BC, ADIFF, ANEU, GFR, CMP #### [address] [address] CO2 [Moles/Vol] 29 mmol/L Normal 22-29 [facility] ([place]) Comment on above: Performed By: #### C BC, ADIFF, ANEU, GFR, CMP #### [address] [address] Creatinine [Mass/Vol] 0.81 mg/dL Normal 0.55-1.02 Count includes the [facility] ([place]) Comment on above: Performed By: #### C BC, ADIFF, ANEU, GFR, CMP #### [address] [address] Electrolyte Balance 6.0 mEq/L Normal 4.0-15.0 [facility] ([place]) Comment on above: Performed By: #### C BC, ADIFF, ANEU, GFR, CMP #### [address] [address] Globulin 3.5 G/dL Normal [facility] ([place]) Comment on above: Performed By: #### C BC, ADIFF, ANEU, GFR, CMP #### [address] [address] Glucose [Mass/Vol] 91 mg/dL Normal 70-105 [facility] ([place]) Comment on above: Performed By: #### C BC, ADIFF, ANEU, GFR, CMP #### [address] [address] Potassium [Moles/Vol] 4.1 mmol/L Normal 3.5-5.1 Count includes the [facility] ([place]) Comment on above: Performed By: #### C BC, ADIFF, ANEU, GFR, CMP #### [place] [address] Sodium [Moles/Vol] 137 mmol/L Normal 136-145 [facility] ([place]) Comment on above: Performed By: #### C BC, ADIFF, ANEU, GFR, CMP #### [address] [address] Total Protein 7.5 G/dL Normal 6.4-8.2 [facility] ([place]) Comment on above: Performed By: #### C BC, ADIFF, ANEU, GFR, CMP #### [address] [address] Urea nitrogen [Mass/Vol] 8 mg/dL Normal 7-18 [facility] ([place]) Comment on above: Performed By: #### C BC, ADIFF, ANEU, GFR, CMP #### [address] [address] LABORATORYOrdered By: SYSTEM SYSTEM on 11-03-2023 Albumin BCP dye [Mass/Vol] 4.0 G/dL Normal 3.5 - 5.0 G/dL AO ADM SS Albumin/Globulin [Mass ratio] 1.1 {ratio} Normal 1.1 - 2.5 ratio AO ADM SS ALP [Catalytic activity/Vol] 70 U/L Normal 40 - 135 U/L AO ADM SS ALT With P-5'-P [Catalytic activity/Vol] 29 U/L Normal 14 - 59 U/L AO ADM SS AST With P-5'-P [Catalytic activity/Vol] 18 U/L Normal 10 - 40 U/L AO ADM SS Basophil, Absolute 0.0 103/mcL Normal 0.0 - 0.2 10^3/mcL AO Workflow SS Basophils/100 WBC (Bld) 0.5 % Normal 0.0 - 2.5 % AO Workflow SS Bilirubin [Mass/Vol] 0.7 mg/dL Normal 0.2 - 1 .0 mg/dL AO ADM SS Comment on above: Interpretive Data: U se of this assay is not recommended for patients undergoing treatment with eltrombopag due to the potential for falsely elevated results. Calcium [Mass/Vol] 9.3 mg/dL Normal 8.4 - 10. 2 mg/dL AO ADM SS Chloride [Moles/Vol] 102 mmol/L Normal 98 - 10 7 mmol/L AO ADM SS CO2 [Moles/Vol] 29 mmol/L Normal 22 - 29 mmol/L AO ADM SS Creatinine [Mass/Vol] 0.81 mg/dL Normal 0.55 - 1.02 mg/dL AO ADM SS Electrolyte Balance 6.0 mEq/L Normal 4.0 - 15 .0 mEq/L AO ADM SS Eosinophil, Absolute 0.2 103/mcL Normal 0.0 - 0 .4 10^3/mcL AO Workflow SS Eosinophils/100 WBC (Bld) 2.4 % Normal 0.0 - 7.0 % AO Workflow SS Erythrocyte distribution width (RBC) [Ratio] 12.8 % Normal 11.5 - 14.5 % AO Workflow SS GFR/1.73 sq M.predicted among blacks MDRD (S/P/Bld) [Vol rate/Area] 94 ml/min/1.73sqm Invalid Interpretation Code AO Chemistry S Comment on above: Interpretive Data: GFR Population mean for , Non- Americans Ages 20-29 = 116 mL/min/1.73 sq.m. Ages 30-39 = 107 mL/min/1.73 sq.m. Ages 40-49 = 99 mL/min/1.73 sq.m. Ages 50-59 = 93 mL/min/1.73 sq.m. Ages 60-69 = 85 mL/min/1.73 sq.m. Ages 70+ = 75 mL/min/1.73 sq.m. Chronic Kidney Disease: Less than 60 mL/min/1.73 square meters End Stage Renal Disease: Less than 15 mL/min/1.73 square meters GFR/1.73 sq M.predicted among non-blacks MDRD (S/P/Bld) [Vol rate/Area] 78 ml/min/1.73sqm Invalid Interpretation Code AO Chemistry S Comment on above: Interpretive Data: GFR Population mean for , Non- Americans Ages 20-29 = 116 mL/min/1.73 sq.m. Ages 30-39 = 107 mL/min/1.73 sq.m. Ages 40-49 = 99 mL/min/1.73 sq.m. Ages 50-59 = 93 mL/min/1.73 sq.m. Ages 60-69 = 85 mL/min/1.73 sq.m. Ages 70+ = 75 mL/min/1.73 sq.m. Chronic Kidney Disease: Less than 60 mL/min/1.73 square meters End Stage Renal Disease: Less than 15 mL/min/1.73 square meters Globulin 3.5 G/dL Invalid Interpretation Code AO ADM SS Glucose [Mass/Vol] 91 mg/dL Normal 70 - 105 mg/dL AO ADM SS Hematocrit (Bld) [Volume fraction] 41.8 % Normal 37.0 - 47.0 % AO Workflow SS Hemoglobin (Bld) [Mass/Vol] 14.2 G/dL Normal 12.0 - 16.0 G/dL AO Workflow SS Lymphocyte, Absolute 1.7 103/mcL Normal 0.8 - 3 .9 10^3/mcL AO Workflow SS Lymphocytes/100 WBC (Bld) 26.7 % Normal 10.0 - 50.0 % AO Workflow SS MCH (RBC) [Entitic mass] 30.7 pg Normal 27.0 - 31.2 pg AO Workflow SS MCHC 34.0 G/dL Normal 33.0 - 37.0 G/dL AO Workflow SS MCV (RBC) [Entitic vol] 90.3 fL Normal 80.0 - 94.0 fL AO Workflow SS Monocyte, Absolute 0.4 103/mcL Normal 0.2 - 1.0 10^3/mcL AO Workflow SS Monocytes/100 WBC (Bld) 7.1 % Normal 1.7 - 13.0 % AO Workflow SS Neutrophil, Absolute 4.0 103/mcL Normal 2.9 - 6 .2 10^3/mcL AO Workflow SS Neutrophils/100 WBC (Bld) 63.3 % Normal 37.0 - 80.0 % AO Workflow SS Platelet mean volume (Bld) [Entitic vol] 9.5 fL Normal 7.4 - 10.4 fL AO Workflow SS Platelets (Bld) [#/Vol] 178 103/mcL Normal 130 - 400 10^3/mcL AO Workflow SS Potassium [Moles/Vol] 4.1 mmol/L Normal 3.5 - 5.1 mmol/L AO ADM SS Protein [Mass/Vol] 7.5 G/dL Normal 6.4 - 8.2 G/dL AO ADM SS RBC (Bld) [#/Vol] 4.63 106/mcL Normal 4.20 - 5.4 0 10^6/mcL AO Workflow SS Sodium [Moles/Vol] 137 mmol/L Normal 136 - 145 mmol/L AO ADM SS Urea nitrogen [Mass/Vol] 8 mg/dL Normal 7 - 18 mg/dL AO ADM SS Urea nitrogen/Creatinine [Mass ratio] 10 ratio Normal 7 - 27 ratio AO ADM SS WBC (Bld) [#/Vol] 6.3 103/mcL Normal 4.6 - 10.8 10^3/mcL AO Workflow SS [facility] [id number] Author: COORDINATOR, MAMMOGRAPHY, ? Service: ? Author Type: Physician Type: Letter Filed: 06/22/2023 16:37 Note Text: June 23, 2023 PID: [id number] Lucian Mott [address] [place] [id number] Dear Ms. Mott, We are pleased to inform you that the results of your recent breast imaging exam on 06/21/2023 are normal. Your mammogram demonstrates that you have dense breast tissue, which could hide abnormalities. Dense breast tissue, in and of itself, is a relatively common condition. Therefore, this information is not provided to cause undue concern; rather, it is to raise your awareness and promote discussion with your health care provider regarding the presence of dense breast tissue in addition to other risk factors. Early detection of cancer is very important. We also understand recommendations regarding breast cancer screening are controversial. Please discuss with your primary care provider which strategy is best for you and whether a mammogram is right for you. Your imaging studies and report will be kept on file at [facility] as part of your permanent medical record and are available for your continuing care. Thank you for allowing us to help in meeting your health care needs. Sincerely, Dr. Saldivar Interpreting Radiologist [facility] (Normal over 40) Normal [facility] SCREENING W TOMOon 06-20 [facility] SCREENING W TERENCE * * *Final Report* * * DATE OF EXAM: Jun 21 2023 12:38PM WRW [id number] - [facility] SCREENING W TERENCE / PROCEDURE REASON: Encounter for screening mammogram for breast cancer * * * * Physician Interpretation * * * * RESULT: #[id number] - [facility] SCREENING W TERENCE BILATERAL DIGITAL SCREENING MAMMOGRAM TOMOSYNTHESIS WITH CAD: 06/21/2023 HISTORY: /Screening Mammogram with TERENCE - patient reports NO breast symptoms /priors available for comparison Encounter For Screening Mammogram For Breast Cancer. RESULT: TECHNIQUE: The study was acquired using full field digital technology and interpreted from soft copy. Digital Breast Tomosynthesis (DBT) images were obtained and used to assist in the interpretation of this examination. Current study was also evaluated with a Computer Aided Detection (CAD). Comparison is made to exam dated: 06/25/2022 mammogram - [facility]. The breasts are extremely dense, which lowers the sensitivity of mammography. No significant masses, calcifications, or other findings are seen in either breast. There has been no significant interval change. IMPRESSION: NEGATIVE There is no mammographic evidence of malignancy. A 1 year screening mammogram is recommended. Mckay scherer/penrad:06/22/2023 16:37:58 Reading Coach(s): RT Arley(R)(M), [facility] letter sent: Normal over 40 Mammogram BI-RADS: 1 Negative Multiple national specialty organizations have released breast cancer screening guidelines for women at average risk for developing breast cancer - guidelines that are based on both evidence and opinion, yet differ on when to start and how often to screen for breast cancer. With representation from Breast Imaging, Internal Medicine, Women's Health, Family Medicine, and Medical/Surgical Oncology, the [facility] has carefully reviewed the data and reached the following consensus: 1) All women should engage in shared decision-making with their providers to decide when to start and how often to screen; 2) All women should have the opportunity to start screening mammography at age 40; 3) For women ages 45-55, we recommend annual screening mammograms; 4) For women ages 55 and over, we support both the transition from an annual to a biennial interval if this aligns more with patient's values and preferences, or continuation with annual screening; 5) All women should discuss with their providers when to stop screening mammograms. Meat Press Operator: Kelly Transcribe Date/Time: Jun 21 2023 11:35A Dictated by: MCKAY SLADIVAR MD This examination was interpreted and the report reviewed and electronically signed by: MCKAY SALDIVAR MD on Jun 22 2023 4:37PM EST [id number] CN Normal [facility] US Pelvison 06-21-2023 [facility] CNOVon 06-07-2023 CNOV Office Visit (OBGYWM) LUCIAN MOTT ([id number]) 1980 F Date Time Provider Department 06/07/23 2:00 PM TIKI FOX OBGYWM During your visit today, we recorded the following information about you: Blood pressure Weight Last Period 100/64 73.8 kg 06/05/23 Tiki Fox MD 06/11/2023 9:39 AM Signed Lucian Mott is a 42 year old female who presents for problem visit - pelvic pain. HPI: Here for RLQ pain. She describes the pain as being dull and it comes and goes. The pain is worse around time of menses. The pain is multiple times a day. Menstrual cycles q 25-28 days with heavy bleeding for 4-5 days. No other GI or complaints. Sexually active with who is considering vasectomy. Had mood changes with Depo injection. She did well on Nuvaring and patch in the past past. When she was on control pill she had side effects from the pill. Mother with h/o endometriosis. No diagnosis of endometriosis herself. H/o ovarian cyst. OB History T2 L3 SAB0 IAB0 Ectopic0 Multiple1 Live Births3 Comment: Kate, [employer] History LMP: 06/05/2023 (Exact Date), Having periods Age at Menarche: Age at First : Age at Menopause: [employer]ole[employer] History Comments: Sexual Activity: Yes; Male Contraception: None PAST MEDICAL HISTORY Diagnosis Date Abnormal glandular Papanicolaou smear of cervix 2005 Abn. Pap smear (cervix) Adjustment disorder with depressed mood Breast disorder Mononucleosis depression Rh negative state in antepartum period 06/12/2014 PAST SURGICAL HISTORY Procedure Laterality Date DELIVERY ONLY 11/06/10 , low transverse COLPOSCOPY CERVIX UPPER/ADJACENT VAGINA 2006 Colposcopy EXC CYST/ABERRANT BREAST TISSUE OPEN 1/> LESION 11/18/06 left UNSPECIFIED ORAL SURGERY PROCEDURE, BY REPORT wisdom teeth removed. FAMILY HISTORY Problem Relation Age of Onset other (Endometrosis) Mother Lipids Father High Cholesterol Cancer Maternal Grandmother lung Cataract Maternal Grandmother other (BRAIN TUMOR) Maternal Grandmother Coronary Artery Disease Maternal Grandfather Cataract Maternal Grandfather Alzheimer's Disease Paternal Grandmother Coronary Artery Disease Paternal Grandfather Social History Tobacco Use Smoking status: Former Packs/day: 0.25 Years: 1.00 Additional pack years: 0.00 Total pack years: 0.25 Types: Cigarettes Smokeless tobacco: Never Tobacco comments: quit about 4-5 yrs. ago. around the age of 21 Vaping Use Vaping Use: Never used Substance Use Topics Alcohol use: No Drug use: No Current Outpatient Medications Medication Sig buPROPion XL (WELLBUTRIN XL) 300 mg 24 hr tablet Take 300 mg by mouth once daily. cetirizine (ZYRTEC) 10 mg tablet Take 10 mg by mouth once daily. Surgical Lubricant Jelly gel For MRI Female Pelvis, MRI department to provide. Administer intra-vaginal Surgilube immediately prior the MRI procedure (total amount to patient toleranace). LACTOBACILLUS ACIDOPHILUS (PROBIOTIC ORAL) Take by mouth. multivitamin tablet Take 1 tablet by mouth once daily. No current facility-administere d medications for this visit. Allergies As of Date: 06/07/2023 Allergen Noted Reaction REGLAN [METOCLOPRAMIDE] 12/18/2010 Other: See Comments SEPTRA [SULFAMETHOXAZOLE-TR IMETHO*06/11/2005 Hives Fully Assessed 06/07/2023 REVIEW OF SYSTEMS Abdomen: No nausea, vomiting, diarrhea, or constipation. Bladder: No dysuria, gross hematuria, urinary frequency, urinary urgency, or incontinence. Vaginal: No discharge or irregular bleeding. Expanded ROS: No fevers or chills. Allergies and current medication updated:Yes EXAM: BP 100/64 Wt 162 lb 9.6 oz (73.8kg) LMP 06/05/2023 GENERAL: pleasant, female in no apparent distress HEENT: Normocephalic and atraumatic NECK: full range of motion DERMATOLOGY: Normal and without lesions CHEST: Normal inspiratory effort ABDOMEN: soft and no masses. +Minimal tenderness across lower pelvis. Non distended. No rebounding, guarding, rigidity. PELVIC: deferred as pt's two sons present in room. BIMANUAL: deferred as pt's two sons present in room. NEURO: exam grossly non-focal EXTREMITIES: normal ASSESSMENT AND PLAN: Encounter Diagnosis ICD-10-CM 1. RLQ abdominal pain R10.31 PELVIC US WHI 2. History of ovarian cyst Z87.42 3. Family history of endometriosis in first degree relative Z84.2 H/o ovarian cysts. Family h/o endometriosis in mother. No evidence of appendicitis on exam. Discussed possible endometriosis? Check pelvic US. Discussed option for trial of vaginal ring to see if that improves her pain, as she did well on NuvaRing in past. Discussed option for seeing PCP and/or pelvic pain clinic for another opinion. Will await results of ultrasound. Tiki Fox, Medical Decision Making: Problems: Low: Acute, uncomplicat (more content not included)... Normal [facility] MRI FEMALE PELVIS WO/W IVCON on 02-22-2023 MRI FEMALE PELVIS WO/W IVCON * * *Final Report* * * DATE OF EXAM: Feb 22 2023 9:27AM [facility] 0713 - MRI FEMALE PELVIS WO/W IVCON / PROCEDURE REASON: Ovarian cyst, complex * * * * Physician Interpretation * * * * MRI OF THE FEMALE PELVIS WITHOUT AND WITH CONTRAST CLINICAL HISTORY: Septated left ovarian cyst identified on prior ultrasound 02/16/2023. TECHNIQUE: Magnet: Siemens 1.5T Espree scanner. Coil: Torso phased array. Sequences/Planes: Multiplanar, multisequence imaging of the female pelvis was performed with and without contrast enhancement. Contrast: IV administration of 15 ml of Dotarem COMPARISON: US pelvis 02/16/2023 RESULT: Uterus: Prior section change. Size: 9.4 x 4.8 x 5.5 cm Orientation: Anteverted Endometrium: Homogeneous signal intensity with no mass measuring 11 mm. Junctional zone: Maximum thickness: 8 mm, Homogeneous T2 hypointense signal Cervix: Nabothian cysts. Leiomyomas: Small fibroid as detailed below. Leiomyoma #1 -Size: 1.1 x 0.7 x 1.0 cm (4:13, 6:13) -Location within the uterus: Posterior uterine body -Type: Intramural (FIGO 4) -Enhancement: Complete / near complete post contrast enhancement -Imaging features: Typical imaging features -Differential: n/a Adenomyomas: None Ovaries: - Right ovary: 1.4 cm unilocular mild T2 hyperintense lesion with T1 hyperintense rim and no appreciable enhancement on postcontrast subtraction images (5:40, 15:59), compatible with an O-RADS 2 proteinaceous/hemorr hagic lesion. No solid or enhancing mass. - Left ovary: 1.7 cm unilocular lobular T2 hyperintense left ovarian cyst with thin enhancing wall (5:54, 15:65), compatible with an O-RADS 2 lesion. Few additional subcentimeter cysts/follicles. No solid or enhancing mass. Endometriosis: None Pelvis free fluid: Trace, likely physiologic. Lymph nodes: No lymph nodes enlarged by size criteria Bones: Normal marrow signal. Neurology Nurse (localizer) images: Unremarkable. IMPRESSION: No suspicious ovarian mass. 1.7 cm left ovarian cystic lesion and 1.4 cm right ovarian proteinaceous/hemorr hagic cyst (both O-RADS 2). Small uterine fibroid. Meat Press Operator: PSCB Transcribe Date/Time: Feb 22 2023 10:35A Dictated by : SAVANNA CORTEZ MD This examination was interpreted and the report reviewed and electronically signed by: SAVANNA CORTEZ MD on Feb 22 2023 11:00AM EST [id number] CN Normal [facility] CBC panel Auto (Bld)on 02-19 Erythrocyte distribution width (RBC) [Ratio] 12.2 % Normal 11.5-15.0 [facility] Comment on above: Order Comment: Speci men Type: BLOOD SPECIMENOrdering Facility: [facility] Address: [address] [place] [address] Performed By: #### 5 8410-2 ####[facility] [id number] [place] [address] [place] Hematocrit (Bld) [Volume fraction] 40.4 % Normal 36.0-46.0 [facility] Comment on above: Order Comment: Speci men Type: BLOOD SPECIMENOrdering Facility: [facility] Address: [address] [place] [address] Performed By: #### 5 8410-2 ####[facility] [id number] [place] [address] [place] Hemoglobin (Bld) [Mass/Vol] 13.5 g/dL Normal 11.5-15.5 [facility] Comment on above: Order Comment: Speci men Type: BLOOD SPECIMENOrdering Facility: [facility] Address: [address] [place] [address] Performed By: #### 5 8410-2 ####[facility] [id number] [place] [address] [place] MCH (RBC) [Entitic mass] 29.5 pg Normal 26.0-34.0 [facility] Comment on above: Order Comment: Speci men Type: BLOOD SPECIMENOrdering Facility: [facility] Address: [address] [place] [address] Performed By: #### 5 8410-2 ####[facility] RAFFYABBIE [id number] [address] [place] MCHC (RBC) [Mass/Vol] 33.4 g/dL Normal 30.5-36.0 [place] Comment on above: Order Comment: Speci men Type: BLOOD SPECIMENOrdering Facility: [facility] Address: [address] [place] [address] Performed By: #### 5 8410-2 ####[facility] [id number] [place] [address] [place] MCV (RBC) [Entitic vol] 88.4 fL Normal 80.0-100.0 [facility] Comment on above: Order Comment: Speci men Type: BLOOD SPECIMENOrdering Facility: [facility] Address: [address] [place] [address] Performed By: #### 5 8410-2 ####[facility] [id number] [place] [address] [place] Nucleated RBC (Bld) [#/Vol] 10*3/uL Normal <0.01 [facility] Comment on above: Order Comment: Speci men Type: BLOOD SPECIMENOrdering Facility: [facility] Address: [address] [place] [address] Performed By: #### 5 8410-2 ####[facility] [id number] [place] [address] [place] Platelet mean volume (Bld) [Entitic vol] 10.6 fL Normal 9.0-12.7 [facility] Comment on above: Order Comment: Speci men Type: BLOOD SPECIMENOrdering Facility: [facility] Address: [address] [place] [address] Performed By: #### 5 8410-2 ####[facility] RAFFYWNCLIA [id number] [place] [address] [place] Platelets (Bld) [#/Vol] 192 10*3/uL Normal 150-400 [facility] Comment on above: Order Comment: Speci men Type: BLOOD SPECIMENOrdering Facility: [facility] Address: [address] [place] [address] Performed By: #### 5 8410-2 ####[facility] [id number] [place] [address] [place] RBC (Bld) [#/Vol] 4.57 10*6/uL Normal 3.90-5.20 [facility] Comment on above: Order Comment: Speci men Type: BLOOD SPECIMENOrdering Facility: [facility] Address: [address] [place] [address] Performed By: #### 5 8410-2 ####[facility] [id number] [place] [address] [place] WBC (Bld) [#/Vol] 6.06 10*3/uL Normal 3.70-11.00 [facility] Comment on above: Order Comment: Speci men Type: BLOOD SPECIMENOrdering Facility: [facility] Address: [address] [place] [address] Performed By: #### 5 8410-2 ####[facility] [id number] [place] [address] [place] Comprehensive metabolic 2000 panelon 02-19-2023 Albumin [Mass/Vol] 4.3 g/dL Normal 3.9-4.9 [facility] Comment on above: Order Comment: Speci men Type: BLOOD SPECIMENOrdering Facility: [facility] Address: [address] [place] [address] Performed By: #### 2 4323-8 ####[facility] [id number] [place] [address] [place] ALP [Catalytic activity/Vol] 69 U/L Normal 34-123 [facility] Comment on above: Order Comment: Speci men Type: BLOOD SPECIMENOrdering Facility: [facility] Address: [address] [place] [address] Performed By: #### 2 4323-8 ####[facility]ITALWNCLIA [id number] [place] [address] [place] ALT [Catalytic activity/Vol] 12 U/L Normal 7-38 [facility] Comment on above: Order Comment: Speci men Type: BLOOD SPECIMENOrdering Facility: [facility] Address: [address] [place] [address] Performed By: #### 2 4323-8 ####[facility] [id number] [place] [address] [place] Anion gap [Moles/Vol] 7 mmol/L Low 9-18 [place] Comment on above: Order Comment: Speci men Type: BLOOD SPECIMENOrdering Facility: [facility] Address: [address] [place] [address] Performed By: #### 2 4323-8 ####[facility] [id number] [place] [address] [place] AST [Catalytic activity/Vol] 15 U/L Normal 13-35 [facility] Comment on above: Order Comment: Speci men Type: BLOOD SPECIMENOrdering Facility: [facility] Address: [address] [place] [address] Performed By: #### 2 4323-8 ####[facility] [id number] [place] [address] [place] Bilirubin [Mass/Vol] 0.6 mg/dL Normal 0.2-1.3 [facility] Comment on above: Order Comment: Speci men Type: BLOOD SPECIMENOrdering Facility: [facility] Address: [address] [place] [address] Performed By: #### 2 4323-8 ####[facility] MILLTOWNCLIA [id number] [place] [address] [place] Calcium [Mass/Vol] 9.5 mg/dL Normal 8.5-10.2 [facility] Comment on above: Order Comment: Speci men Type: BLOOD SPECIMENOrdering Facility: [facility] Address: [address] [place] [address] Performed By: #### 2 4323-8 ####[facility] MILLTOWNCLIA [id number] [place] [address] [place] Chloride [Moles/Vol] 102 mmol/L Normal 97-105 [facility] Comment on above: Order Comment: Speci men Type: BLOOD SPECIMENOrdering Facility: [facility] Address: [address] [place] [address] Performed By: #### 2 4323-8 ####[facility] MILLTOWNCLIA [id number] [place] [address] [place] CO2 [Moles/Vol] 28 mmol/L Normal 22-30 [facility] Comment on above: Order Comment: Speci men Type: BLOOD SPECIMENOrdering Facility: [facility] Address: [address] [place] [address] Performed By: #### 2 4323-8 ####[facility] MILLTOWNCLIA [id number] [place] [address] [place] Creatinine [Mass/Vol] 0.85 mg/dL Normal 0.58-0.96 [place] Comment on above: Order Comment: Speci men Type: BLOOD SPECIMENOrdering Facility: [facility] Address: [address] [place] [address] Performed By: #### 2 4323-8 ####[facility] [id number] [place] [address] [place] Creatinine and Glomerular filtration rate.predicted panel (S/P/Bld) 89 mL/min/1.73m??? Normal >=60 [facility] Comment on above: Order Comment: Annalisa israel Type: BLOOD SPECIMENOrdering Facility: [facility] Address: [address] [place] [address] Result Comment: Kay mated Glomerular Filtration Rate (eGFR) is calculated using the 2020 CKD-EPI creatinine equation. This equation utilizes serum creatinine, sex, and age as parameters. The creatinine assay has traceable calibration to isotope dilution-mass spectrometry. Refer to KDIGO guidelines for clinical interpretation. In patients with unstable renal function, e.g. those with acute kidney injury, the eGFR may not accurately reflect actual GFR. Performed By: #### 2 4323-8 ####[facility] [id number] [place] [address] [place] Glucose [Mass/Vol] 98 mg/dL Normal 74-99 [facility] Comment on above: Order Comment: Annalisa israel Type: BLOOD SPECIMENOrdering Facility: [facility] Address: [address] [place] [address] Result Comment: The [place] Diabetes Association (ADA) provides guidance for cutoff values for fasting glucose and random glucose. The ADA defines fasting as no caloric intake for at least 8 hours. Fasting plasma glucose results between 100 to 125 mg/dL indicate increased risk for diabetes (prediabetes). Fasting plasma glucose results greater than or equal to 126 mg/dL meet the criteria for diagnosis of diabetes. In the absence of unequivocal hyperglycemia, results should be confirmed by repeat testing. In a patient with classic symptoms of hyperglycemia or hyperglycemic crisis, random plasma glucose results greater than or equal to 200 mg/dL meet the criteria for diagnosis of diabetes. Reference: Standards of Medical Care in Diabetes 2016, [place] Diabetes Association. Diabetes Care. 2016.39(Suppl 1). Performed By: #### 2 4323-8 ####[facility] [id number] [place] [address] [place] Potassium [Moles/Vol] 4.2 mmol/L Normal 3.7-5.1 [place] Comment on above: Order Comment: Speci men Type: BLOOD SPECIMENOrdering Facility: [facility] Address: [address] [place] [address] Performed By: #### 2 4323-8 ####[facility] MILLWNCLIA [id number] [place] [address] [place] Protein [Mass/Vol] 7.1 g/dL Normal 6.3-8.0 [facility] Comment on above: Order Comment: Speci men Type: BLOOD SPECIMENOrdering Facility: [facility] Address: [address] [place] [address] Performed By: #### 2 4323-8 ####[facility] [id number] [place] [address] [place] Sodium [Moles/Vol] 137 mmol/L Normal 136-144 [facility] Comment on above: Order Comment: Speci men Type: BLOOD SPECIMENOrdering Facility: [facility] Address: [address] [place] [address] Performed By: #### 2 4323-8 ####[facility]US[facility]IA [id number] [place] [address] [place] Urea nitrogen [Mass/Vol] 9 mg/dL Normal 7-21 [facility] Comment on above: Order Comment: Speci men Type: BLOOD SPECIMENOrdering Facility: [facility] Address: [address] [place] [address] Performed By: #### 2 4323-8 ####[facility] [id number] [place] [address] [place] Lipid 1996 panelon 3 Cholesterol [Mass/Vol] 188 mg/dL Normal <200 [facility] Comment on above: Order Comment: Speci men Type: BLOOD SPECIMENOrdering Facility: [facility] Address: [address] [place] [address] Result Comment: <200 mg/dL, Desirable 200-239 mg/dL, Borderline high >239 mg/dL, High Performed By: #### 2 4331-1 ####[facility] LABCLIA [id number] [address] [id number] [place] [address] [place]#### 3016-3 ####[facility] LABCLIA [id number] [place] [address] [place] Cholesterol in HDL [Mass/Vol] 58 mg/dL Normal >39 [facility] Comment on above: Order Comment: Speci men Type: BLOOD SPECIMENOrdering Facility: [facility] Address: [address] [place] [address] Result Comment: 40-5 9 mg/dL, Acceptable >59 mg/dL, High: Negative risk factor for coronary heart disease <40 mg/dL, Low: Positive risk factor for coronary heart disease Performed By: #### 2 4331-1 ####[facility] LABCLIA [id number] [address] STATES OF [facility] [id number] [place] [address] [place]#### 3016-3 ####[facility] LABCLIA [id number] [place] [address] [place] Cholesterol in LDL [Mass/Vol] 117 mg/dL High <100 [facility] Comment on above: Order Comment: Speci men Type: BLOOD SPECIMENOrdering Facility: [facility] Address: [address] [place] [address] Result Comment: <100 mg/dL, Optimal 100-129 mg/dL, Near optimal/above optimal 130-159 mg/dL, Borderline high 160-189 mg/dL, High >189 mg/dL, Very high Secondary prevention optimal LDL Cholesterol levels are recommended to be < 70 mg/dL Performed By: #### 2 4331-1 ####[facility] LABCLIA [id number] [address] [id number] [place] [address] [place]#### 3016-3 ####[facility] LABCLIA [id number] [place] [address] [place] Cholesterol in LDL/Cholesterol in HDL [Mass ratio] 2.02 {ratio} Normal <2.54 [facility] Comment on above: Order Comment: Speci men Type: BLOOD SPECIMENOrdering Facility: [facility] Address: [address] [place] [address] Result Comment: Refsalvatore carrillo: 1. National Cholesterol Education Program ATP III Guideline At-A-Glance Quick Desk Reference: National Heart, Lung, and Blood [place]. National Institutes of Health. 2001: NIH Publication No. 01-3305. 2. An International Atherosclerosis Society position paper: global recommendations for the management of dyslipidemia: executive summary, Atherosclerosis. 2014: 232(2):410-413. Performed By: #### 2 4331-1 ####[facility] LABCLIA [id number] [id number] [place] [address] [place]#### 3016-3 ####[facility] LABCLIA [id number] [place] [address] [place] Cholesterol in VLDL [Mass/Vol] 13 mg/dL Normal <30 [facility] Comment on above: Order Comment: Speci men Type: BLOOD SPECIMENOrdering Facility: [facility] Address: [address] [place] [address] Performed By: #### 2 4331-1 ####[facility] LABCLIA [id number] [address] [id number] [place] [address] [place]#### 3016-3 ####[facility] LABCLIA [id number] [place] [address] [place] Cholesterol non HDL [Mass/Vol] 130 mg/dL High <130 [facility] Comment on above: Order Comment: Speci men Type: BLOOD SPECIMENOrdering Facility: [facility] Address: [address] [place] [address] Result Comment: <130 mg/dL, Optimal 130-159 mg/dL, Near optimal/above optimal 160-189 mg/dL, Borderline high 190-219 mg/dL, High >219 mg/dL, Very high Secondary prevention optimal non HDL Cholesterol levels are recommended to be <100 mg/dL Performed By: #### 2 4331-1 ####[facility] LABCLIA [id number] [address] [id number] [place] [address] [place]#### 3016-3 ####[facility] LABCLIA [id number] [place] [address] [place] Cholesterol.total/Cho lesterol in HDL [Mass ratio] 3.24 {ratio} Normal <5.10 [facility] Comment on above: Order Comment: Speci men Type: BLOOD SPECIMENOrdering Facility: [facility] Address: [address] [place] [address] Performed By: #### 2 4331-1 ####[facility] LABCLIA [id number] [address] [id number] [place] [address] [place]#### 3016-3 ####[facility] LABCLIA [id number] [place] [address] [place] FASTING TIME 14 hrs Normal [facility] Comment on above: Order Comment: Speci men Type: BLOOD SPECIMENOrdering Facility: [facility] Address: [address] [place] [address] Performed By: #### 2 4331-1 ####[facility] LABCLIA [id number] [address] STATES [facility] [id number] [place] [address] [place]#### 3016-3 ####[facility] LABCLIA [id number] [place] [address] [place] Triglyceride [Mass/Vol] 63 mg/dL Normal <150 [facility] Comment on above: Order Comment: Speci men Type: BLOOD SPECIMENOrdering Facility: [facility] Address: [address] [place] [address] Result Comment: <150 mg/dL, Normal 150-199 mg/dL, Borderline high 200-499 mg/dL, High >499 mg/dL, Very high Performed By: #### 2 4331-1 ####[facility] LABCLIA [id number] [place] [address] [place] [facility] [id number] [place] [address] [place]#### 3016-3 ####[facility] LABCLIA [id number] [place] [address] [place] TSH SerPl-aCncon 02-19-2023 TSH Qn 1.260 m[IU]/L Normal 0.270-4.200 [facility] Comment on above: Order Comment: Speci men Type: BLOOD SPECIMENOrdering Facility: [facility] Address: [address] [place] [address] Result Comment: If t he patient is , TSH reference range varies by gestational period: First Trimester (weeks 9-12): 0.180-2.990 mIU/L Second Trimester: 0.110-3.980 mIU/L Third Trimester: 0.480-4.710 mIU/L Jay Jay Cohen et al. A Practical Approach for the Verifications and Determination of Site- and Trimester-Specific Reference Intervals for Thyroid Function tests in . Thyroid, 2019:29:3:412-420. Reji E, et al. 2017 Guidelines of the [place] Thyroid Association for the Diagnosis and Management of Thyroid Disease during and the . Thyroid, 2017:27:3:315-389. Performed By: #### 2 4331-1 ####[facility] LABIA [id number] [address] [id number] [address] OF [facility]#### 3016-3 ####[facility] [id number] [place] [id number] [facility] Byron 02-17-2023 ESHAN Telephone (OBGYWM) LUCIAN MOTT ([id number]) 1980 F Date Time Provider Department 02/17/23 GIAN SARGENT OBGYWM During your visit today, we recorded the following information about you: Svitlana Álvarez RN 02/17/2023 2:54 PM Signed Patient called in very concerned. she had an ultrasound done 02/16 and can see the results on MyChart and asking when she would hear from a provider. Notified patient that Dr. Fox is out the rest of the week and she asked that we send concerns to RR and ask her to review the ultrasound. KIMANI Deleon Danielle, RN 02/18/2023 3:19 PM Signed See mychart encounter 02/18/23. Svitlana Álvarez RN Allergies As of Date: 02/17/2023 Noted Allergy Reaction REGLAN (METOCLOPRAMIDE) 12/18/2010 14 - Other: See Comments Comments: Heart races SEPTRA (SULFAMETHOXAZOLE-TR IMETHO*06/11/2005 4 - Hives Date Reviewed: 01/29/2023 Reviewed by: Svitlana Álvarez RN - Fully Assessed Reason for Visit: Ultrasound results [Other] Prescriptions as of 02/18/2023 - iv contrast (will be provided with radiology test) MRI Female Pelvis Inject, intravenously, once for 1 dose. No IV access, insert saline lock prior to the beginning of sedation, infusion, injection of imaging exam. Discontinue saline lock post exam. If Pt has a central line or IVAD, may access for administration according to line specific nursing protocol. Once exam is complete flush line and de-access according to line specific nursing protocol in the MR contrast administration guidelines link. - Surgical Lubricant Jelly gel For MRI Female Pelvis, MRI department to provide. Administer intra-vaginal Surgilube immediately prior the MRI procedure (total amount to patient toleranace). - buPROPion XL (WELLBUTRIN XL) 300 mg 24 hr tablet Take 300 mg by mouth once daily. - cetirizine (ZYRTEC) 10 mg tablet Take 10 mg by mouth once daily. - LACTOBACILLUS ACIDOPHILUS (PROBIOTIC ORAL) Take by mouth. - multivitamin tablet Take 1 tablet by mouth once daily. 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] 11/22/2006 Supervision of normal first [Z34.00] 05/19/2010 09/28/2011 Threatened , antepartum [O20.0] 05/19/2010 09/28/2011 Depression, major [F32.9] 09/28/2011 Supervision of other normal [Z34.80] 05/30/2014 10/11/2014 History of delivery [Z98.891] 05/30/2014 01/16/2015 Dichorionic diamniotic twin , antepart*05/30/2014 01/16/2015 Rh negative state in antepartum period [O26.899*06/12/2014 01/16/2015 Low lying placenta, antepartum [O44.40] 10/11/2014 01/16/2015 Supervision of high risk in third tri*10/11/2014 11/09/2014 Benign gestational thrombocytopenia in third tr*11/09/2014 01/16/2015 Chronic pelvic pain in female [R10.2, G89.29] 02/03/2017 Encounter Status:Closed by SVITLANA ÁLVAREZ on 02/18/23 Normal [facility] FEMALE PELVIS TRANSVAGon 02-16-2023 US FEMALE PELVIS TRANSVAG * * *Final Report* * * DATE OF EXAM: Feb 16 2023 9:15AM WRU 1060 - US FEMALE PELVIS TRANSVAG / PROCEDURE REASON: Pelvic pain in female * * * * Physician Interpretation * * * * EXAMINATION: TRANSVAGINAL AND LIMITED TRANSABDOMINAL FEMALE PELVIC ULTRASOUND CLINICAL HISTORY: Pelvic pain TECHNIQUE: Sonography of the pelvis was performed by transvaginal and transabdominal (limited) techniques. Images were obtained and stored in a permanent archive. MQ: [facility]_2021 COMPARISON: None RESULT: Uterus: -Size: 10.5 x 4.9 x 5.8 cm -Orientation: Anteverted -Endometrial echo complex: Evaluation of the endometrium was adequate. No endometrial abnormality. The endometrial echo complex measured 1.2 cm. -Cervix: Unremarkable. -Adenomyosis assessment: There are no sonographic findings of adenomyosis. -Fibroids: There are no fibroids. Right Ovary: 3.3 x 1.6 x 2.2 cm. Normal appearance Left Ovary: 4.2 x 1.8 x 2.7 cm 2.1 x 1.4 x 1.9 cm cyst containing thick septation. Flow within the septation. Free Fluid: No abnormal free fluid is present. IMPRESSION: Left ovarian cyst containing thick septation. Flow within the septation. This is ORADS 4 intermediate risk lesion. Follow-up MRI recommended ACTIONABLE RESULT: FOLLOW-UP Acuity: Actionable Findings: Female reproductive tract (pelvis, adnexa) Routing code: WH_1 Recommendation: Unlisted Recommendation (see report) Time Frame: At the discretion of the clinical team. COMMUNICATION: Results will be communicated with the ordering provider via [email or web address] staff message or phone message by [facility] within 2 business days of report finalization. --END OF FINDING-- Meat Press Operator: PSCB Transcribe Date/Time: Feb 17 2023 1:47P Dictated by : MIGUEL AVILA MD This examination was interpreted and the report reviewed and electronically signed by: MIGUEL AVILA MD on Feb 17 2023 1:52PM EST [id number] CN ACTIONABLE Invalid Interpretation Code [facility] CNOVon 01-29-2023 CNOV Office Visit (OBGYWM) LUCIAN MOTT ([id number]) 1980 F Date Time Provider Department 01/29/23 10:10 AM TIKI FOX OBGYWM During your visit today, we recorded the following information about you: Blood pressure Weight Height Last Period 74.9 kg 1.676 m 01/10/22 Tiki Fox MD 01/29/2023 10:54 AM Signed Dynamicist offered: Patient declines. Lucian is a 42 year old who presents for an annual gynecologic exam without complaints. Some pelvic pain that started this week. Menses: cycles every 22 days and 5 days of flow. Contraception: none. Would be happy if . is considering a vasectomy HPV vaccine: N/A Last Pap: 11/28/2021 normal HPV: 11/24/2021 negative History of abnormal pap: Yes - h/o colposcopy at age 24 Last mammogram: 2022normal Sexually active: Yes OB History T2 L3 SAB0 IAB0 Ectopic0 Multiple1 Live Births3 Comment: Kate, Linoleum Installer History LMP: 11/09/2021 (Exact Date), Having periods Age at Menarche: Age at First : Age at Menopause: Linoleum Installer History Comments: Sexual Activity: Yes; Male Contraception: None PAST MEDICAL HISTORY Diagnosis Date Abnormal glandular Papanicolaou smear of cervix 2005 Abn. Pap smear (cervix) Adjustment disorder with depressed mood Breast disorder Mononucleosis depression Rh negative state in antepartum period 06/12/2014 PAST SURGICAL HISTORY Procedure Laterality Date DELIVERY ONLY 11/06/10 , low transverse COLPOSCOPY CERVIX UPPER/ADJACENT VAGINA 2005 Colposcopy EXC CYST/ABERRANT BREAST TISSUE OPEN /> LESION 11/18/06 left UNSPECIFIED ORAL SURGERY PROCEDURE, BY REPORT wisdom teeth removed. FAMILY HISTORY Problem Relation Age of Onset other (Endometrosis) Mother Lipids Father High Cholesterol Cancer Maternal Grandmother lung Cataract Maternal Grandmother other (BRAIN TUMOR) Maternal Grandmother Coronary Artery Disease Maternal Grandfather Cataract Maternal Grandfather Alzheimer's Disease Paternal Grandmother Coronary Artery Disease Paternal Grandfather SOCIAL HISTORY Social History Tobacco Use Smoking status: Former Packs/day: 0.25 Years: 1.00 Additional pack years: 0.00 Total pack years: 0.25 Types: Cigarettes Smokeless tobacco: Never Tobacco comments: quit about 4-5 yrs. ago. around the age of 21 Vaping Use Vaping Use: Never used Substance Use Topics Alcohol use: No Drug use: No REVIEW OF SYSTEMS Abdomen: No nausea, vomiting, diarrhea, or constipation. No bloating, early satiety, indigestion, or increased flatulence. Bladder: No dysuria, gross hematuria, urinary frequency, urinary urgency, or incontinence. Breast: No breast lumps, nipple d/c, overlying skin changes, redness or skin retraction. Allergies and current medication updated:Yes EXAM: LMP 11/09/2021 GENERAL: pleasant, female in no apparent distress HEENT: Normocephalic, atraumatic, mucus membranes moist, and no lesions NECK: full range of motion DERMATOLOGY: Normal, without lesions, non-icteric, and non-hirsute BREAST: soft, non-tender, symmetric, no dominant mass, normal nipple-areolar complex, no lymphadenopathy, and no nipple discharge CHEST: Normal inspiratory effort ABDOMEN: soft, +diffuse tenderness across lower pelvis, and no masses PELVIC: external genitalia normal, normal Bartholin's glands, urethra, [place]'s glands, no vulvar lesions, no cervical lesions, good vaginal support, physiologic discharge present, normal appearing perineal body and perianal region BIMANUAL: uterus normal size, shape and consistency, no adnexal masses, and non-tender RECTOVAGINAL: deferred. NEURO: exam grossly non-focal EXTREMITIES: normal ASSESSMENT/PLAN: 1) Health maintenance: Pap/HPV up to date. Mammogram ordered. Nutrition, exercise and routine health maintenance exams reviewed. Lipids/glucose: ordered Pelvic US ordered for pain 2) Contraception: none. Contraceptive options reviewed and information provided. Discussed risks of AMA in . 3) STD screening: Declined STD check. 4) Follow up one year or sooner as needed Tiki Fox, Allergies As of Date: 01/29/2023 Noted Allergy Reaction REGLAN (METOCLOPRAMIDE) 12/18/2010 14 - Other: See Comments Comments: Heart races SEPTRA (SULFAMETHOXAZOLE-TR IMETHO*06/11/2005 4 - Hives Date Reviewed: 01/29/2023 Reviewed by: Svitlana Álvarez RN - Fully Assessed Reason for Visit: Well Woman [1463] Primary Visit Diagnosis:Encounter for gynecological examination (general) (routine) without abnormal findings [Z01.419] Other Visit Diagnoses:Encounter for screening mammogram for breast cancer [Z12.31] Pelvic pain in female [R10.2] Well woman exam [Z01.419] Order(s):MANUEL SCREENING W TERENCE [[id number]] Order #: [id number] [facility] FEMALE PELVIS TRANSVAG [[id number]] Order # (more content not included)... [facility] [id number] Author: Mammography Coordinator Service: ? Author Type: Physician Type: Letter Filed: 06/29/2022 11:35 PM Note Text: June 29, 2022 PID: [id number] Lucian Mott [address] [place] [id number] Dear Nellie, We are pleased to inform you that the results of your recent breast imaging exam on 06/25/2022 are normal. Your mammogram demonstrates that you have dense breast tissue, which could hide abnormalities. Dense breast tissue, in and of itself, is a relatively common condition. Therefore, this information is not provided to cause undue concern; rather, it is to raise your awareness and promote discussion with your health care provider regarding the presence of dense breast tissue in addition to other risk factors. Early detection of cancer is very important. We also understand recommendations regarding breast cancer screening are controversial. Please discuss with your primary care provider which strategy is best for you and whether a mammogram is right for you. Your imaging studies and report will be kept on file at [facility] as part of your permanent medical record and are available for your continuing care. Thank you for allowing us to help in meeting your health care needs. Sincerely, Dr. Ford Interpreting Radiologist [facility] (Normal over 40) Normal [facility] SCREENING W TOMOon 06-25 [facility] SCREENING W TERENCE * * *Final Report* * * DATE OF EXAM: Jun 25 2022 12:49PM [facility] [id number] - [facility] SCREENING W TERENCE / PROCEDURE REASON: Encounter for screening mammogram for malignant neoplasm of breast * * * * Physician Interpretation * * * * RESULT: #[id number] - [facility] SCREENING W TERENCE BILATERAL DIGITAL SCREENING MAMMOGRAM TOMOSYNTHESIS WITH CAD: 06/25/2022 HISTORY: Encounter For Screening Mammogram For Malignant Neoplasm Of Breast / Screening Mammogram-Patient reports NO symptoms. /priors for comparison are coming from [facility]/ pt signed release. RESULT: TECHNIQUE: The study was acquired using full field digital technology and interpreted from soft copy. Digital Breast Tomosynthesis (DBT) images were obtained and used to assist in the interpretation of this examination. Current study was also evaluated with a Computer Aided Detection (CAD). Comparison is made to exam dated: 08/08/2019 mammogram. The tissue of both breasts is extremely dense, which lowers the sensitivity of mammography. No significant masses, calcifications, or other findings are seen in either breast. There has been no significant interval change. IMPRESSION: NEGATIVE There is no mammographic evidence of malignancy. A 1 year screening mammogram is recommended. Lucila nettles/kelly:06/26/2022 10:11:08 Reading Coach(s): Monique Calderon [facility] letter sent: Normal over 40 Mammogram BI-RADS: 1 Negative Multiple national specialty organizations have released breast cancer screening guidelines for women at average risk for developing breast cancer - guidelines that are based on both evidence and opinion, yet differ on when to start and how often to screen for breast cancer. With representation from Breast Imaging, Internal Medicine, Women's Health, Family Medicine, and Medical/Surgical Oncology, the [facility] has carefully reviewed the data and reached the following consensus: 1) All women should engage in shared decision-making with their providers to decide when to start and how often to screen; 2) All women should have the opportunity to start screening mammography at age 40; 3) For women ages 45-55, we recommend annual screening mammograms; 4) For women ages 55 and over, we support both the transition from an annual to a biennial interval if this aligns more with patient's values and preferences, or continuation with annual screening; 5) All women should discuss with their providers when to stop screening mammograms. Meat Press Operator: Kelly Transcribe Date/Time: Jun 25 2022 12:34P Dictated by: LUCILA FORD MD This examination was interpreted and the report reviewed and electronically signed by: LUCILA FORD MD on Jun 26 2022 10:11AM EST [id number] CN Normal [facility] LABORATORYOrdered By: Salty Downing on 02-07-2022 CRP [Mass/Vol] 0.9 mg/dL Invalid Interpretation Code 0.0 - 0.9 mg/dL AO ADM SS Fibrin D-dimer DDU (PPP) [Mass/Vol] ng/mL D-DU Invalid Interpretation Code 0 - 230 ng/mL D-DU AO Coag SS LABORATORYOrdered By: Rukhsana Allan on 11-26-2021 Albumin BCP dye [Mass/Vol] 4.2 G/dL Invalid Interpretation Code 3.5 - 5.0 G/dL AO ADM SS Albumin/Globulin [Mass ratio] 1.3 {ratio} Invalid Interpretation Code 1.1 - 2.5 ratio AO ADM SS ALP [Catalytic activity/Vol] 70 U/L Invalid Interpretation Code 40 - 135 U/L AO ADM SS ALT With P-5'-P [Catalytic activity/Vol] 31 U/L Invalid Interpretation Code 14 - 59 U/L AO ADM SS AST With P-5'-P [Catalytic activity/Vol] 22 U/L Invalid Interpretation Code 10 - 40 U/L AO ADM SS Basophil, Absolute 0.0 103/mcL Invalid Interpretation Code 0.0 - 0.2 10^3/mcL AO Workflow SS Basophils/100 WBC (Bld) 0.4 % Invalid Interpretation Code 0.0 - 2.5 % AO Workflow SS Bilirubin [Mass/Vol] 0.6 mg/dL Invalid Interpretation Code 0.2 - 1.0 mg/dL AO ADM SS Calcium [Mass/Vol] 8.8 mg/dL Invalid Interpretation Code 8.4 - 10.2 mg/dL AO ADM SS Chloride [Moles/Vol] 104 mmol/L Invalid Interpretation Code 98 - 107 mmol/L AO ADM SS Cholesterol [Mass/Vol] 224 mg/dL Invalid Interpretation Code 0 - 200 mg/dL AO ADM SS Cholesterol in HDL [Mass/Vol] 70 mg/dL Invalid Interpretation Code 40 - 60 mg/dL AO ADM SS Cholesterol in LDL [Mass/Vol] 144 mg/dL Invalid Interpretation Code 0 - 130 mg/dL AO ADM SS CO2 [Moles/Vol] 29 mmol/L Invalid Interpretation Code 22 - 29 mmol/L AO ADM SS Creatinine [Mass/Vol] 0.76 mg/dL Invalid Interpretation Code 0.55 - 1.02 mg/dL AO ADM SS Electrolyte Balance 7.0 mEq/L Invalid Interpretation Code 4.0 - 15.0 mEq/L AO ADM SS Eosinophil, Absolute 0.3 103/mcL Invalid Interpretation Code 0.0 - 0.4 10^3/mcL AO Workflow SS Eosinophils/100 WBC (Bld) 4.9 % Invalid Interpretation Code 0.0 - 7.0 % AO Workflow SS Erythrocyte distribution width (RBC) [Ratio] 13.1 % Invalid Interpretation Code 11.5 - 14.5 % AO Workflow SS Globulin 3.2 G/dL Invalid Interpretation Code AO ADM SS Glucose [Mass/Vol] 87 mg/dL Invalid Interpretation Code 70 - 105 mg/dL AO ADM SS Hematocrit (Bld) [Volume fraction] 40.9 % Invalid Interpretation Code 37.0 - 47.0 % AO Workflow SS Hemoglobin (Bld) [Mass/Vol] 14.0 G/dL Invalid Interpretation Code 12.0 - 16.0 G/dL AO Workflow SS Lymphocyte, Absolute 2.0 103/mcL Invalid Interpretation Code 0.8 - 3.9 10^3/mcL AO Workflow SS Lymphocytes/100 WBC (Bld) 30.5 % Invalid Interpretation Code 10.0 - 50.0 % AO Workflow SS MCH (RBC) [Entitic mass] 30.4 pg Invalid Interpretation Code 27.0 - 31.2 pg AO Workflow SS MCHC 34.2 G/dL Invalid Interpretation Code 33.0 - 37.0 G/dL AO Workflow SS MCV (RBC) [Entitic vol] 88.8 fL Invalid Interpretation Code 80.0 - 94.0 fL AO Workflow SS Monocyte, Absolute 0.5 103/mcL Invalid Interpretation Code 0.2 - 1.0 10^3/mcL AO Workflow SS Monocytes/100 WBC (Bld) 7.0 % Invalid Interpretation Code 1.7 - 13.0 % AO Workflow SS Neutrophil, Absolute 3.8 103/mcL Invalid Interpretation Code 2.9 - 6.2 10^3/mcL AO Workflow SS Neutrophils/100 WBC (Bld) 57.2 % Invalid Interpretation Code 37.0 - 80.0 % AO Workflow SS Platelet mean volume (Bld) [Entitic vol] 9.3 fL Invalid Interpretation Code 7.4 - 10.4 fL AO Workflow SS Platelets (Bld) [#/Vol] 180 103/mcL Invalid Interpretation Code 130 - 400 10^3/mcL AO Workflow SS Potassium [Moles/Vol] 3.7 mmol/L Invalid Interpretation Code 3.5 - 5.1 mmol/L AO ADM SS Protein [Mass/Vol] 7.4 G/dL Invalid Interpretation Code 6.4 - 8.2 G/dL AO ADM SS RBC (Bld) [#/Vol] 4.61 106/mcL Invalid Interpretation Code 4.20 - 5.40 10^6/mcL AO Workflow SS Sodium [Moles/Vol] 140 mmol/L Invalid Interpretation Code 136 - 145 mmol/L AO ADM SS Triglyceride [Mass/Vol] 50 mg/dL Invalid Interpretation Code 0 - 150 mg/dL AO ADM SS TSH Qn 1.18 m[IU]/L Invalid Interpretation Code 0.36 - 3.74 mcIU/mL AO ADM SS Urea nitrogen [Mass/Vol] 10 mg/dL Invalid Interpretation Code 7 - 18 mg/dL AO ADM SS Urea nitrogen/Creatinine [Mass ratio] 13 ratio Invalid Interpretation Code 7 - 27 ratio AO ADM SS WBC (Bld) [#/Vol] 6.6 103/mcL Invalid Interpretation Code 4.6 - 10.8 10^3/mcL AO Workflow SS LABORATORYOrdered By: SYSTEM SYSTEM on 11-26-2021 GFR 103 ml/min/1.73sqm Invalid Interpretation Code AO Chemistry S GFR Non- 85 ml/min/1.73sqm Invalid Interpretation Code AO Chemistry S LABORATORYOrdered By: Bhavna Gan on 12-16-2020 ADMITTED TO INTENSIVE CARE UNIT FOR CONDITION OF INTEREST:FIND:PT:^PAT IENT:ORD: No (12/16/20 10:49 AM) Invalid Interpretation Code AO Auto Urine SS EMPLOYED IN A HEALTHCARE SETTING:FIND:PT:^ALMA ROSA ENT:ORD: Unknown (12/16/20 10:49 AM) Invalid Interpretation Code AO Auto Urine SS FIRST TEST FOR CONDITION OF INTEREST:FIND:PT:^PAT IENT:ORD: Unknown (12/16/20 10:49 AM) Invalid Interpretation Code AO Auto Urine SS HAS SYMPTOMS RELATED TO CONDITION OF INTEREST:FIND:PT:^PAT IENT:ORD: Unknown (12/16/20 10:49 AM) Invalid Interpretation Code AO Auto Urine SS Illness or injury onset date and time [id number] Invalid Interpretation Code AO Auto Urine SS Patient was hospitalized because of this condition No (12/16/20 10:49 AM) Invalid Interpretation Code AO Auto Urine SS status Unknown (12/16/20 10:49 AM) Invalid Interpretation Code AO Auto Urine SS RESIDES IN A CONGREGATE CARE SETTING:FIND:PT:^ALMA ROSA ENT:ORD: Unknown (12/16/20 10:49 AM) Invalid Interpretation Code AO Auto Urine SS SARS-CoV-2 (COVID-19) RNA ALBERTINA+probe Ql (Resp) Negative (12/16/20 10:49 AM) Invalid Interpretation Code Negative AO Auto Urine SS SARS-CoV-2 (COVID-19) RNA ALBERTINA+probe Ql (Unsp spec) Negative results do not preclude SARS-CoV-2 infection and should not be used as the sole basis for patient management decisions. Negative results must be combined with clinical observations, patient history, and epidemiological information.There is a risk of false negative values resulting from improperly collected, transported, or handled specimens.There is a risk of false negative values due to the presence of sequence variants in the pathogen targets of the assay, procedural errors, amplification inhibitors in specimens, or inadequate numbers of organisms for amplification.NALINI SARS-CoV-2 Assay is a Real-Time reverse-transcriptas e polymerase chain reaction (RT-PCR) based qualitative in vitro diagnostic test intended for the qualitative detection of nucleic acid from the SARS-CoV-2 in nasopharyngeal swab specimens collected from individuals suspected of COVID-19 by their healthcare provider. Testing is limited to laboratories certified under the Clinical Laboratory Improvement Amendments of 1988 (CLIA), 42 U.S.C. 263a, to perform moderate and high complexity tests. Invalid Interpretation Code AO Auto Urine SS Vital Signs Date Time Vital Sign Value Performing Clinician Chen prater 06-07-2023 13:53-0400 Body weight 73.75 kg Tiki Fox MD Work Phone: [facility] 06-07-2023 13:53-0400 Diastolic blood pressure 64 mm[Hg] Tiki Fox MD Work Phone: [facility] 06-07-2023 13:53-0400 Systolic blood pressure 100 mm[Hg] Tiki Fox MD Work Phone: [facility] 11-19-2021 09:43-0400 Body height 166 cm Tiki Fox MD Work Phone: [facility] 11-19-2021 09:43-0400 Body weight 77.75 kg Tiki Fox MD Work Phone: [facility] 11-19-2021 09:43-0400 Diastolic blood pressure 72 mm[Hg] Tiki Fox MD Work Phone: [facility] 11-19-2021 09:43-0400 Systolic blood pressure 102 mm[Hg] Tiki Fox MD Work Phone: [facility] Encounters Encounter Date Encounter Type Care Provider Facility Start: 11-04-2023 End: 11-08-2023 ambulatory BALJINDER PERAZA APRN-COURT COLLECTIONS OFFICER Facility:B Start: 11-04-2023 End: 11-08-2023 Outreach Lab BALJINDER PERAZA APRN-COURT COLLECTIONS OFFICER [facility] Start: 11-03-2023 End: 11-03-2023 ambulatory BALJINDER Sharonda TSU HOTEL DINING ROOM CASHIER-COURT COLLECTIONS OFFICER Facility:[facility] Start: 11-03-2023 End: 11-03-2023 Patient encounter procedure BALJINDER A STU HOTEL DINING ROOM CASHIER-COURT COLLECTIONS OFFICER [facility] Start: 06-22-2023 Documentation procedure Mammog bonita Coordinator [facility] Start: 06-22-2023 Letter encounter Mammography Coordinator [facility] Department Start: 06-21-2023 End: 06-21-2023 ambulatory TIKI FOX Facility:[facility] Start: 06-21-2023 End: 06-21-2023 Manual pelvic examination Ob Ultrasound Work Phone: OB/Gynecology Comment on above: Pelvic Pain Start: 06-21-2023 End: 06-21-2023 Patient encounter procedure Staff Auditor Augustine Ultrasound Work Phone: [facility] Start: 06-21-2023 End: 06-21-2023 Subsequent hospital visit by physician Screen Mammo [facility] Comment on above: Encounter for screen ing mammogram for breast cancer [Z12.31] Start: 06-07-2023 End: 06-07-2023 ambulatory TIKI FOX Facility:[facility] Start: 06-07-2023 End: 06-07-2023 Patient encounter procedure Tiki Fox MD Work Phone: OB/Gynecology Comment on above: RLQ abdominal pain ( Primary Dx); History of ovarian cyst; Family history of endometriosis in first degree relative Start: 02-22-2023 End: 02-22-2023 ambulatory PETE HURTADO Facility:[facility] Start: 02-19-2023 End: 02-20-2023 ambulatory TIKI FOX Facility:[facility] Start: 02-19-2023 Encounter for gynecological examination (general) (routine) without abnormal findings TIKI FOX [facility] Start: 02-19-2023 Patient encounter procedure TIKI FOX [facility] Start: 02-17-2023 Telephone encounter Gian Sargent MD Work Phone: OB/Gynecology Comment on above: Ultrasound results Start: 02-16-2023 End: 02-16-2023 ambulatory TIKI FOX Facility:[facility] Start: 02-16-2023 End: 02-16-2023 Subsequent hospital visit by physician Us [facility] 2 Work Phone: Radiology Comment on above: Pelvic pain in femal e [R10.2] Start: 01-29-2023 End: 01-29-2023 ambulatory TIKI [facility] Facility:[facility] Start: 06-26-2022 Documentation procedure Mammog bonita Coordinator [facility] Start: 06-26-2022 Letter encounter Mammography Coordinator [facility] Department Start: 06-25-2022 End: 06-25-2022 ambulatory TIKI [facility] Facility:[facility] Start: 06-25-2022 End: 06-25-2022 Subsequent hospital visit by physician Screen Mammo [facility] Comment on above: Encounter for screen ing mammogram for malignant neoplasm of breast [Z12.31] Start: 02-07-2022 End: 02-07-2022 Patient encounter procedure SHIRA EDWARDS HOTEL DINING ROOM CASHIER - COURT COLLECTIONS OFFICER [facility] Start: 11-27-2021 Telephone encounter Tiki justice MD Work Phone: OB/Gynecology Comment on above: Received Outside [facility] Records Start: 11-26-2021 End: 11-26-2021 Patient encounter procedure TIKI FOX DO [facility] Start: 11-19-2021 End: 11-19-2021 Patient encounter procedure Tiki Fox MD Work Phone: OB/Gynecology Comment on above: Encounter for gyneco logical examination (general) (routine) without abnormal findings (Primary Dx); Encounter for screening for human papillomavirus (HPV); Encounter for screening mammogram for malignant neoplasm of breast; Vaginal discharge Start: 11-19-2021 End: 11-19-2021 Patient encounter status Tiki Fox MD Work Phone: OB/Gynecology Start: 12-16-2020 End: 12-20-2020 Outreach Lab JOAQUIM BOSWELL HOTEL DINING ROOM CASHIER-COURT COLLECTIONS OFFICER [facility] Procedures Date Procedure Procedure Detail Performing Clinician Start: 06-21-2023 Us pelvic nonobstetr ic real-time image complete Tiki Fox MD Work Phone: Start: 06-25-2022 MANUEL SCREENING W TERENCE Sa ra Dominique MOSS Work Phone: Start: 06-25-2022 Mammography Mammograph y Coordinator Plan of Treatment Date Care Activity Detail Author Start: 09-30-2027 Urine microalbumin profile DTaP,Tdap,Td Vaccine (2 - Td or Tdap) [facility] Start: 11-19-2026 HPV TESTING HPV TESTING [facility] Start: 11-19-2026 PAP TESTING PAP TESTING [facility] Start: 11-19-2026 Screening for malign ant neoplasm of cervix [facility] Start: 2024 Screening for malign ant neoplasm of breast Mammogram Screening [facility] Start: 11-07-2023 Influenza vaccination Influenz a Vaccine (Season Ended) [facility] Start: 06-26-2023 Mammography [facility] Start: 06-26-2023 Screening for malign ant neoplasm of breast Mammogram Screening [facility] Start: 06-07-2023 End: 06-06-2024 US Pelvis PELVIC US [facility] Routine RLQ abdominal pain Expected: 06/07/2023, Expires: 06/06/[address] [facility] Work Phone: Comment on above: Expected: 06/07/2023 , Expires: 06/06/2024 Start: 11-06-2022 Covid-19 Vaccine ( season) Covid-19 Vaccine ( season) [facility] Start: 11-06-2022 Influenza vaccination [facility] Start: 12-22-2021 HPV TESTING HPV TESTING [facility] Start: 12-22-2021 PAP TESTING PAP TESTING [facility] Start: 11-19-2021 End: 01-19-2022 CBC panel - Blood by Automated count CBC Lab Routine Encounter for gynecological examination (general) (routine) without abnormal findings Expected: 11/19/2021, Expires: 01/19/[address] [facility] Work Phone: Comment on above: Expected: 11/19/2021 , Expires: 01/19/2022 Start: 11-19-2021 End: 01-19-2022 Comprehensive metabolic 2000 panel - Serum or Plasma COMP METABOLIC PANEL Lab Routine Encounter for gynecological examination (general) (routine) without abnormal findings Expected: 11/19/2021, Expires: 01/19/[address] [facility] Work Phone: Comment on above: Expected: 11/19/2021 , Expires: 01/19/2022 Start: 11-19-2021 End: 01-19-2022 Lipid 1996 panel - Serum or Plasma LIPID PANEL BASIC Lab Routine Encounter for gynecological examination (general) (routine) without abnormal findings Expected: 11/19/2021, Expires: 01/19/[address] [facility] Work Phone: Comment on above: Expected: 11/19/2021 , Expires: 01/19/2022 Start: 11-19-2021 End: 01-19-2022 Thyrotropin [Units/volume] in Serum or Plasma TSH BLD Lab Routine Encounter for gynecological examination (general) (routine) without abnormal findings Expected: 11/19/2021, Expires: 01/19/[address] [facility] Work Phone: Comment on above: Expected: 11/19/2021 , Expires: 01/19/2022 Start: 11-06-2021 Influenza vaccination INFLUENZA (#1) [facility] Start: 2001 Hepatitis B Vaccine (1 of 3 - 19+ 3-dose series) Hepatitis B Vaccine (1 of 3 - 19+ 3-dose series) [facility] Start: 2001 Urine microalbumin profile DTAP,TDAP,TD (1 - Tdap) [facility] Start: 2000 HEPATITIS C SCREENING HEPATITIS C [facility] Start: 2000 Hepatitis C screening Hepatitis C [facility] Start: 2000 HIV SCREENING HIV SCREENING [facility] Start: 2000 HIV screening HIV Screening [facility] Start: 1982 COVID-19 VACCINE (#1) COVID-19 VACCI NE (#1) [facility] Start: 1982 HEPATITIS B (1 of 3 - 3-dose series) HEPATITIS B (1 of 3 - 3-dose series) [facility] Start: 1982 Hepatitis B Vaccine (1 of 3 - 3-dose series) Hepatitis B Vaccine (1 of 3 - 3-dose series) [facility] BACTERIAL VAGINOSIS AMPLIFICATION BACTERIAL VAGINOSIS AMPLIFICATION Lab Routine Vaginal discharge 11/19/2021 1:12 PM EDT [facility] Work Phone: [facility]A / TRICHOMONA S AMPLIFICATION [facility] / TRICHOMONAS AMPLIFICATION Microbiology Routine Vaginal discharge 11/19/2021 1:12 PM EDT [facility] Work Phone: DBT Breast - bilater al screening MANUEL SCREENING W TERENCE Radiology Routine Encounter for screening mammogram for breast cancer 06/21/2023 12:38 PM EDT [facility] Work Phone: End: 12-19-2022 MANUEL SCREENING W TERENCE MANUEL SCREENING W TERENCE Radiology Routine Encounter for screening mammogram for malignant neoplasm of breast 1 Occurrences starting 11/19/2021 until 12/19/[address] [facility] Work Phone: Comment on above: 1 Occurrences starti ng 11/19/2021 until 12/19/2022 PAP FLUID CERVICAL SCREENING PAP FLUID CERVICAL SCREENING Lab Routine Encounter for screening for human papillomavirus (HPV) 11/19/2021 10:33 AM EDT [facility] Work Phone: Us transvaginal US FEMALE PELVIS TRANSVAG Radiology Routine Pelvic pain in female 02/16/2023 9:15 AM EST [facility] Work Phone: [facility] Immunizations Immunization Date Immunization Notes Care Provider Fa cility 12-15-2019 influenza virus vaccine, unspecified formulation Screen Wstr [facility] 11-09-2014 RHO(D) immune globul in- IV or IM Tiki Fox MD Work Phone: [facility] Work Phone: Payers Date Payer Category Payer Unknown [id number] 2019 Unknown [id number] 2019 Unknown [id number] 1982 Unknown [id number] 1982 Unknown [id number] Social History Date Type Detail Facility Start: 03-25-2020 Never smoked t obacco (finding) [facility] Sex Assigned At [facility] Start: 03-11-2010 End: 01-29-2023 Tobacco smoking status NHIS Ex-smoker [facility] Work Phone: History of tobacco use Current smoker [facility] Work Phone: History of tobacco use Cigarette Smoker [facility] Work Phone: Start: 03-11-2010 End: 01-29-2023 Cigarettes smoked current (pack per day) - Reported 0.3 [facility] Start: 03-11-2010 End: 01-29-2023 Tobacco use and exposure Smokeless tobacco non-user [facility] Work Phone: Start: 11-19-2021 End: 06-07-2023 Alcohol intake Current non-drinker of alcohol (finding) [facility] Start: 1980 Sex Assigned At Not on file [facility] Start: 11-02-2021 End: 11-12-2021 Exposure to SARS-CoV-2 (event) Not sure [facility] Start: 11-19-2021 End: 01-29-2023 Tobacco use panel [facility] National Score (1-10 0), lower number is lower risk 57 [facility] Start: 01-29-2023 Tobacco Comment quit about 4-5 yrs. ago. around the age of 21 [facility] Clinical Notes 11-09-2014 to 11-09-2023 LaboratoryLetter - Coordinator, Mammography - 06/22/2023 4:37 PM EDTBIliana reno Mammo Tech - 06/21/2023 1:10 PM EDTTiki Fox MD - 06/07/2023 1:48 PM EDT Note Date & Type Note Facility 11-09-2023 Note . MICRO - Microbiology PROCEDURE: Shiga Toxins 1 and 2 [[id number]: [id number] ^1 *1] SOURCE: Stool BODY SITE: COLLECTED DATE/TIME: 11/05/2023 15:50 EDT RECEIVED DATE/TIME: 11/05/2023 15:50 EDT START DATE/TIME: 11/05/2023 15:50 EDT FREE TEXT SOURCE: FINAL REPORTS Final Report [] Verified Date/Time/Personnel: 11/09/2023 14:11 EDT Absence of Shiga toxin 1 Absence of Shiga toxin 2 Order Comments O1: Shiga Toxins 1 and 2 ordered by lab as part of Culture Stool Panel Interpretive Data ^1: Shiga Toxins 1 and 2 Testing performed by immunochromatography. Performing Locations *1: This test was performed at: [address], [facility] , [facility] ([place]) 11-08-2023 Note . MICRO - Microbiology PROCEDURE: Stool Culture [^1 *1] SOURCE: Stool BODY SITE: COLLECTED DATE/TIME: 11/04/2023 14:53 EDT RECEIVED DATE/TIME: 11/05/2023 15:50 EDT START DATE/TIME: 11/05/2023 15:50 EDT FREE TEXT SOURCE: FINAL REPORTS Final Report [] Verified Date/Time/Personnel: 11/08/2023 10:48 EDT Normal stool donald present - coliforms absent. Salmonella: Negative Shigella: Negative Campylobacter: Negative PRELIMINARY REPORTS Preliminary Report [] Verified Date/Time/Personnel: 11/07/2023 08:22 EDT Normal stool donald present - coliforms absent. Negative for stool pathogens at 48 hours. Final report to follow. Interpretive Data ^1: Culture Stool Requests for alternative pathogens including Yersinia, E. coli 0157, C. difficile toxin, Rotavirus, Giardia and parasites require specific requests. Performing Locations *1: This test was performed at: [facility], [address] [place] [address], [id number] , [facility] ([place]) 11-05-2023 Evaluation + Plan note Diagnostic Tests PendingShiga Toxins 1 and 2 11/05/23 [facility] 11-03-2023 Evaluation + Plan note Future Scheduled TestsClostridium difficile (PCR) 11/03/23Stool Culture 11/03/23Stool Gastrointestinal Panel 11/03/23Ova + Parasite Exam 11/03/23 [facility] 06-22-2023 Miscellaneous Notes June 23, 2023 PID: [id number] Lucian ENoelle Mott [address] [place] [id number] Dear Ms. Mott, We are pleased to inform you that the results of your recent breast imaging exam on 06/21/2023 are normal. Your mammogram demonstrates that you have dense breast tissue, which could hide abnormalities. Dense breast tissue, in and of itself, is a relatively common condition. Therefore, this information is not provided to cause undue concern; rather, it is to raise your awareness and promote discussion with your health care provider regarding the presence of dense breast tissue in addition to other risk factors. Early detection of cancer is very important. We also understand recommendations regarding breast cancer screening are controversial. Please discuss with your primary care provider which strategy is best for you and whether a mammogram is right for you. Your imaging studies and report will be kept on file at [facility] as part of your permanent medical record and are available for your continuing care. Thank you for allowing us to help in meeting your health care needs. Sincerely, Dr. Saldivar Interpreting Radiologist [facility] (Normal over 40) documented in this encounter [facility] 06-21-2023 Note HNO ID: [id number] Author: ILIANA ASENCIO Mammo Tech Service: ? Author Type: Edge Trimmer Type: Progress Notes Filed: 06/21/2023 12:41 Note Text: Radiology Service Progress Note PATIENT NAME: Lucian Mott DATE OF SERVICE: June 21, 2023 TIME: 12:41 PM PATIENT IDENTITY VERIFICATION COMPLETED USING TWO (2) IDENTIFIERS: Name and Date of confirmed by patient verbally. FALL SCREENING: Has the patient had 2 falls in the last year or 1 fall with injury or currently using an Ambulatory Assistive Device (Walker, Cane, Wheelchair, Crutches, etc.)? No PATIENT GENDER DATA: Female. status: : No status: NO. PATIENT RELEVANT IMPLANT DATA REVIEWED: Not Applicable PATIENT PRESENTS WITH AN IMPLANTABLE OR ATTACHED CEMENTER MACHINE JOINER: No RADIOLOGY DEPARTMENT: Mammography PERIPHERAL IV DATA: Not applicable SIGNED BY: Dragan Tubbs June 21, 2023 12:41 PM [facility] 06-21-2023 History of Presen t illness Narrative Radiology Service Progress Note PATIENT NAME: Lucina Mott DATE OF SERVICE: June 21, 2023 TIME: 12:41 PM PATIENT IDENTITY VERIFICATION COMPLETED USING TWO (2) IDENTIFIERS: Name and Date of confirmed by patient verbally. FALL SCREENING: Has the patient had 2 falls in the last year or 1 fall with injury or currently using an Ambulatory Assistive Device (Walker, Cane, Wheelchair, Crutches, etc.)? No PATIENT GENDER DATA: Female. status: : No status: NO. PATIENT RELEVANT IMPLANT DATA REVIEWED: Not Applicable PATIENT PRESENTS WITH AN IMPLANTABLE OR ATTACHED CEMENTER MACHINE JOINER: No RADIOLOGY DEPARTMENT: Mammography PERIPHERAL IV DATA: Not applicable SIGNED BY: Dragan Tubbs June 21, 2023 12:41 PM documented in this encounter [facility] 06-07-2023 Note HNO ID: [id number] Author: TIKI FOX MD Service: ? Author Type: Physician Type: Progress Notes Filed: 06/11/2023 09:39 Note Text: Lucian Mott is a 42 year old female who presents for problem visit - pelvic pain. HPI: Here for RLQ pain. She describes the pain as being dull and it comes and goes. The pain is worse around time of menses. The pain is multiple times a day. Menstrual cycles q 25-28 days with heavy bleeding for 4-5 days. No other GI or complaints. Sexually active with who is considering vasectomy. Had mood changes with Depo injection. She did well on Nuvaring and patch in the past past. When she was on control pill she had side effects from the pill. Mother with h/o endometriosis. No diagnosis of endometriosis herself. H/o ovarian cyst. OB History T2 L3 SAB0 IAB0 Ectopic0 Multiple1 Live Births3 Comment: Kate, Linoleum Installer History LMP: 06/05/2023 (Exact Date), Having periods Age at Menarche: Age at First : Age at Menopause: Linoleum Installer History Comments: Sexual Activity: Yes; Male Contraception: None PAST MEDICAL HISTORY Diagnosis Date Abnormal glandular Papanicolaou smear of cervix 2005 Abn. Pap smear (cervix) Adjustment disorder with depressed mood Breast disorder Mononucleosis depression Rh negative state in antepartum period 06/12/2014 PAST SURGICAL HISTORY Procedure Laterality Date DELIVERY ONLY 11/06/10 , low transverse COLPOSCOPY CERVIX UPPER/ADJACENT VAGINA 2005 Colposcopy EXC CYST/ABERRANT BREAST TISSUE OPEN 1/> LESION 11/18/06 left UNSPECIFIED ORAL SURGERY PROCEDURE, BY REPORT wisdom teeth removed. FAMILY HISTORY Problem Relation Age of Onset other (Endometrosis) Mother Lipids Father High Cholesterol Cancer Maternal Grandmother lung Cataract Maternal Grandmother other (BRAIN TUMOR) Maternal Grandmother Coronary Artery Disease Maternal Grandfather Cataract Maternal Grandfather Alzheimer's Disease Paternal Grandmother Coronary Artery Disease Paternal Grandfather Social History Tobacco Use Smoking status: Former Packs/day: 0.25 Years: 1.00 Additional pack years: 0.00 Total pack years: 0.25 Types: Cigarettes Smokeless tobacco: Never Tobacco comments: quit about 4-5 yrs. ago. around the age of 21 Vaping Use Vaping Use: Never used Substance Use Topics Alcohol use: No Drug use: No Current Outpatient Medications Medication Sig buPROPion XL (WELLBUTRIN XL) 300 mg 24 hr tablet Take 300 mg by mouth once daily. cetirizine (ZYRTEC) 10 mg tablet Take 10 mg by mouth once daily. Surgical Lubricant Jelly gel For MRI Female Pelvis, MRI department to provide. Administer intra-vaginal Surgilube immediately prior the MRI procedure (total amount to patient toleranace). LACTOBACILLUS ACIDOPHILUS (PROBIOTIC ORAL) Take by mouth. multivitamin tablet Take 1 tablet by mouth once daily. No current facility-administered medications for this visit. Allergies As of Date: 06/07/2023 Allergen Noted Reaction REGLAN [METOCLOPRAMIDE] 12/18/2010 Other: See Comments SEPTRA [SULFAMETHOXAZOLE-TRIMETHO*08/2005 Hives Fully Assessed 06/07/2023 REVIEW OF SYSTEMS Abdomen: No nausea, vomiting, diarrhea, or constipation. Bladder: No dysuria, gross hematuria, urinary frequency, urinary urgency, or incontinence. Vaginal: No discharge or irregular bleeding. Expanded ROS: No fevers or chills. Allergies and current medication updated:Yes EXAM: BP 100/64 Wt 162 lb 9.6 oz (73.8kg) LMP 06/05/2023 GENERAL: pleasant, female in no apparent distress HEENT: Normocephalic and atraumatic NECK: full range of motion DERMATOLOGY: Normal and without lesions CHEST: Normal inspiratory effort ABDOMEN: soft and no masses. +Minimal tenderness across lower pelvis. Non distended. No rebounding, guarding, rigidity. PELVIC: deferred as pt's two sons present in room. BIMANUAL: deferred as pt's two sons present in room. NEURO: exam grossly non-focal EXTREMITIES: normal ASSESSMENT AND PLAN: Encounter Diagnosis ICD-10-CM 1. RLQ abdominal pain R10.31 PELVIC US WHI 2. History of ovarian cyst Z87.42 3. Family history of endometriosis in first degree relative Z84.2 H/o ovarian cysts. Family h/o endometriosis in mother. No evidence of appendicitis on exam. Discussed possible endometriosis? Check pelvic US. Discussed option for trial of vaginal ring to see if that improves her pain, as she did well on NuvaRing in past. Discussed option for seeing PCP and/or pelvic pain clinic for another opinion. Will await results of ultrasound. Tiki Fox, Medical Decision Making: Problems: Low: Acute, uncomplicated illness or injury Data: Unique test(s) ordered: 1 Medical Decision Making Level: 2 - Straightforward [facility] 06-07-2023 History of Presen t illness Narrative Lucian Mott is a 42 year old female who presents for problem visit - pelvic pain. HPI: Here for RLQ pain. She describes the pain as being dull and it comes and goes. The pain is worse around time of menses. The pain is multiple times a day. Menstrual cycles q 25-28 days with heavy bleeding for 4-5 days. No other GI or complaints. Sexually active with who is considering vasectomy. Had mood changes with Depo injection. She did well on Nuvaring and patch in the past past. When she was on control pill she had side effects from the pill. Mother with h/o endometriosis. No diagnosis of endometriosis herself. H/o ovarian cyst. OB History T2 L3 SAB0 IAB0 Ectopic0 Multiple1 Live Births3 Comment: Kate, Linoleum Installer History LMP: 06/05/2023 (Exact Date), Having periods Age at Menarche: Age at First : Age at Menopause: Linoleum Installer History Comments: Sexual Activity: Yes; Male Contraception: None PAST MEDICAL HISTORY Diagnosis Date Abnormal glandular Papanicolaou smear of cervix 2005 Abn. Pap smear (cervix) Adjustment disorder with depressed mood Breast disorder Mononucleosis depression Rh negative state in antepartum period 06/12/2014 PAST SURGICAL HISTORY Procedure Laterality Date DELIVERY ONLY 11/06/10 , low transverse COLPOSCOPY CERVIX UPPER/ADJACENT VAGINA 2006 Colposcopy EXC CYST/ABERRANT BREAST TISSUE OPEN 1/> LESION 11/18/06 left UNSPECIFIED ORAL SURGERY PROCEDURE, BY REPORT wisdom teeth removed. FAMILY HISTORY Problem Relation Age of Onset other (Endometrosis) Mother Lipids Father High Cholesterol Cancer Maternal Grandmother lung Cataract Maternal Grandmother other (BRAIN TUMOR) Maternal Grandmother Coronary Artery Disease Maternal Grandfather Cataract Maternal Grandfather Alzheimer's Disease Paternal Grandmother Coronary Artery Disease Paternal Grandfather Social History Tobacco Use Smoking status: Former Packs/day: 0.25 Years: 1.00 Additional pack years: 0.00 Total pack years: 0.25 Types: Cigarettes Smokeless tobacco: Never Tobacco comments: quit about 4-5 yrs. ago. around the age of 21 Vaping Use Vaping Use: Never used Substance Use Topics Alcohol use: No Drug use: No Current Outpatient Medications Medication Sig buPROPion XL (WELLBUTRIN XL) 300 mg 24 hr tablet Take 300 mg by mouth once daily. cetirizine (ZYRTEC) 10 mg tablet Take 10 mg by mouth once daily. Surgical Lubricant Jelly gel For MRI Female Pelvis, MRI department to provide. Administer intra-vaginal Surgilube immediately prior the MRI procedure (total amount to patient toleranace). LACTOBACILLUS ACIDOPHILUS (PROBIOTIC ORAL) Take by mouth. multivitamin tablet Take 1 tablet by mouth once daily. No current facility-administered medications for this visit. Allergies As of Date: 06/07/2023 Allergen Noted Reaction MONIQUELAN [METOCLOPRAMIDE] 12/18/2010 Other: See Comments ISAIAH [SULFAMETHOXAZOLE-TRIMETHO*08/2005 Hives Fully Assessed 06/07/2023 REVIEW OF SYSTEMS Abdomen: No nausea, vomiting, diarrhea, or constipation. Bladder: No dysuria, gross hematuria, urinary frequency, urinary urgency, or incontinence. Vaginal: No discharge or irregular bleeding. Expanded ROS: No fevers or chills. Allergies and current medication updated:Yes EXAM: BP 100/64 Wt 162 lb 9.6 oz (73.8kg) LMP 06/05/2023 GENERAL: pleasant, female in no apparent distress HEENT: Normocephalic and atraumatic NECK: full range of motion DERMATOLOGY: Normal and without lesions CHEST: Normal inspiratory effort ABDOMEN: soft and no masses. +Minimal tenderness across lower pelvis. Non distended. No rebounding, guarding, rigidity. PELVIC: deferred as pt's two sons present in room. BIMANUAL: deferred as pt's two sons present in room. NEURO: exam grossly non-focal EXTREMITIES: normal ASSESSMENT AND PLAN: Encounter Diagnosis ICD-10-CM 1. RLQ abdominal pain R10.31 PELVIC US WHI 2. History of ovarian cyst Z87.42 3. Family history of endometriosis in first degree relative Z84.2 H/o ovarian cysts. Family h/o endometriosis in mother. No evidence of appendicitis on exam. Discussed possible endometriosis? Check pelvic US. Discussed option for trial of vaginal ring to see if that improves her pain, as she did well on NuvaRing in past. Discussed option for seeing PCP and/or pelvic pain clinic for another opinion. Will await results of ultrasound. Tiki Fox DO Medical Decision Making: Problems: Low: Acute, uncomplicated illness or injury Data: Unique test(s) ordered: 1 Medical Decision Making Level: 2 - Straightforward documented in this encounter [facility] 02-22-2023 Note HNO ID: [id number] Author: Yessi Mccall RN Service: Nursing Author Type: Registered Nurse Type: Progress Notes Filed: 02/22/2023 8:33 AM Note Text: Radiology Service Progress Note DATE OF SERVICE: February 22, 2023 TIME: 8:29 AM PATIENT WEIGHT: 160LBS PATIENT IDENTITY VERIFICATION COMPLETED USING TWO (2) STANDARD IDENTIFIERS: Name and Date of confirmed by patient verbally. FALL SCREENING: Has the patient had 2 falls in the last year or 1 fall with injury or currently using an Ambulatory Assistive Device (Walker, Cane, Wheelchair, Crutches, etc.)? No PATIENT GENDER DATA: Female. status: : No status: NO. ALLERGIES: Reviewed and unchanged CONTRAST ALLERGY: No EXAM: MRI - CONTRAST TYPE: GROUP II IV SITE: Ambulatory: A peripheral IV was started in the Right antecubital site with a Angio cath: 22 gauge. and A Saline lock was inserted per protocol IV SITE APPEARANCE: Clean,Dry and Intact SIGNATURE: Yessi Mccall RN PATIENT NAME: Lucian Mott DATE: February 22, 2023 TIME: 8:29 AM [facility] 02-22-2023 Note HNO ID: [id number] Author: Fanny Aguiar, health and safety inspector Service: Radiology Author Type: Edge Trimmer Type: Progress Notes Filed: 02/22/2023 9:13 AM Note Text: Radiology Service Progress Note PATIENT NAME: Lucian Mott DATE OF SERVICE: February 22, 2023 TIME: 9:12 AM PATIENT IDENTITY VERIFICATION COMPLETED USING TWO (2) IDENTIFIERS: Name and Date of confirmed by patient verbally. FALL SCREENING: Has the patient had 2 falls in the last year or 1 fall with injury or currently using an Ambulatory Assistive Device (Walker, Cane, Wheelchair, Crutches, etc.)? No PATIENT GENDER DATA: Female. status: : No status: NO. PATIENT RELEVANT IMPLANT DATA REVIEWED: Yes RADIOLOGY DEPARTMENT: MR; Exam(s) Completed: Body: Female Pelvis PERIPHERAL IV DATA: Site assessment: Clean,Dry and Intact, Site disposition Discontinued SIGNED BY: BERNADETTE Kathleen Tech February 22, 2023 9:12 AM [facility] 02-18-2023 Miscellaneous Notes See mychart encounter 02/18/23. Svitlana Álvarez RN Patient called in very concerned. she had an ultrasound done 02/16 and can see the results on MyChart and asking when she would hear from a provider. Notified patient that Dr. Fox is out the rest of the week and she asked that we send concerns to RR and ask her to review the ultrasound. Svitlana Álvarez RN documented in this encounter [facility] 02-16-2023 Note HNO ID: [id number] Author: Maricarmen Munguia RDMS Service: ? Author Type: Edge Trimmer Type: Progress Notes Filed: 02/16/2023 9:11 AM Note Text: Radiology Service Progress Note PATIENT NAME: Lucian Mott DATE OF SERVICE: February 16, 2023 TIME: 9:11 AM PATIENT IDENTITY VERIFICATION COMPLETED USING TWO (2) IDENTIFIERS: Name and Date of confirmed by patient verbally. FALL SCREENING: Has the patient had 2 falls in the last year or 1 fall with injury or currently using an Ambulatory Assistive Device (Walker, Cane, Wheelchair, Crutches, etc.)? No PATIENT GENDER DATA: Female. status: : No status: NO. PATIENT RELEVANT IMPLANT DATA REVIEWED: Not Applicable RADIOLOGY DEPARTMENT: Ultrasound PERIPHERAL IV DATA: Not applicable SIGNED BY: Maricarmen Munguia RDMS February 16, 2023 9:11 AM [facility] 02-16-2023 History of Presen t illness Narrative Radiology Service Progress Note PATIENT NAME: Lucian Mott DATE OF SERVICE: February 16, 2023 TIME: 9:11 AM PATIENT IDENTITY VERIFICATION COMPLETED USING TWO (2) IDENTIFIERS: Name and Date of confirmed by patient verbally. FALL SCREENING: Has the patient had 2 falls in the last year or 1 fall with injury or currently using an Ambulatory Assistive Device (Walker, Cane, Wheelchair, Crutches, etc.)? No PATIENT GENDER DATA: Female. status: : No status: NO. PATIENT RELEVANT IMPLANT DATA REVIEWED: Not Applicable RADIOLOGY DEPARTMENT: Ultrasound PERIPHERAL IV DATA: Not applicable SIGNED BY: Maricarmen Munguia RDMS February 16, 2023 9:11 AM documented in this encounter [facility] 01-29-2023 Note HNO ID: [id number] Author: Tiki Fox MD Service: ? Author Type: Physician Type: Progress Notes Filed: 01/29/2023 10:54 AM Note Text: Dynamicist offered: Patient declines. Lucian is a 42 year old who presents for an annual gynecologic exam without complaints. Some pelvic pain that started this week. Menses: cycles every 22 days and 5 days of flow. Contraception: none. Would be happy if . 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 Pap smear (cervix) Adjustment disorder with depressed mood Breast disorder Mononucleosis depression Rh negative state in antepartum period 06/12/2014 PAST SURGICAL HISTORY Procedure Laterality Date DELIVERY ONLY 11/06/10 , low transverse COLPOSCOPY CERVIX UPPER/ADJACENT VAGINA 2006 Colposcopy EXC CYST/ABERRANT BREAST TISSUE OPEN 1/> LESION 11/18/06 left UNSPECIFIED ORAL SURGERY PROCEDURE, BY REPORT wisdom teeth removed. FAMILY HISTORY Problem Relation Age of Onset other (Endometrosis) Mother Lipids Father High Cholesterol Cancer Maternal Grandmother lung Cataract Maternal Grandmother other (BRAIN TUMOR) Maternal Grandmother Coronary Artery Disease Maternal Grandfather Cataract Maternal Grandfather Alzheimer's Disease Paternal Grandmother Coronary Artery Disease Paternal Grandfather SOCIAL HISTORY Social History Tobacco Use Smoking status: Former Packs/day: 0.25 Years: 1.00 Additional pack years: 0.00 Total pack years: 0.25 Types: Cigarettes Smokeless tobacco: Never Tobacco comments: quit about 4-5 yrs. ago. around the age of 21 Vaping Use Vaping Use: Never used Substance Use Topics Alcohol use: No Drug use: No REVIEW OF SYSTEMS Abdomen: No nausea, vomiting, diarrhea, or constipation. No bloating, early satiety, indigestion, or increased flatulence. Bladder: No dysuria, gross hematuria, urinary frequency, urinary urgency, or incontinence. Breast: No breast lumps, nipple d/c, overlying skin changes, redness or skin retraction. Allergies and current medication updated:Yes EXAM: LMP 11/09/2021 GENERAL: pleasant, female in no apparent distress HEENT: Normocephalic, atraumatic, mucus membranes moist, and no lesions NECK: full range of motion DERMATOLOGY: Normal, without lesions, non-icteric, and non-hirsute BREAST: soft, non-tender, symmetric, no dominant mass, normal nipple-areolar complex, no lymphadenopathy, and no nipple discharge CHEST: Normal inspiratory effort ABDOMEN: soft, +diffuse tenderness across lower pelvis, and no masses PELVIC: external genitalia normal, normal Bartholin's glands, urethra, [place]'s glands, no vulvar lesions, no cervical lesions, good vaginal support, physiologic discharge present, normal appearing perineal body and perianal region BIMANUAL: uterus normal size, shape and consistency, no adnexal masses, and non-tender RECTOVAGINAL: deferred. NEURO: exam grossly non-focal EXTREMITIES: normal ASSESSMENT/PLAN: 1) Health maintenance: Pap/HPV up to date. Mammogram ordered. Nutrition, exercise and routine health maintenance exams reviewed. Lipids/glucose: ordered Pelvic US ordered for pain 2) Contraception: none. Contraceptive options reviewed and information provided. Discussed risks of AMA in . 3) STD screening: Declined STD check. 4) Follow up one year or sooner as needed Tiki Fox DO [facility] 06-26-2022 Miscellaneous Notes June 29, 2022 PID: [id number] Lucian Mott [address] [place] [id number] Dear Ms. Mott, We are pleased to inform you that the results of your recent breast imaging exam on 06/25/2022 are normal. Your mammogram demonstrates that you have dense breast tissue, which could hide abnormalities. Dense breast tissue, in and of itself, is a relatively common condition. Therefore, this information is not provided to cause undue concern; rather, it is to raise your awareness and promote discussion with your health care provider regarding the presence of dense breast tissue in addition to other risk factors. Early detection of cancer is very important. We also understand recommendations regarding breast cancer screening are controversial. Please discuss with your primary care provider which strategy is best for you and whether a mammogram is right for you. Your imaging studies and report will be kept on file at [facility] as part of your permanent medical record and are available for your continuing care. Thank you for allowing us to help in meeting your health care needs. Sincerely, Dr. Ford Interpreting Radiologist [facility] (Normal over 40) documented in this encounter [facility] 06-25-2022 Note HNO ID: [id number] Author: RT Christina(R) Service: ? Author Type: Technologist Type: Progress Notes Filed: 06/25/2022 12:48 PM Note Text: Radiology Service Progress Note PATIENT NAME: Lucian Mott DATE OF SERVICE: June 25, 2022 TIME: 12:48 PM PATIENT IDENTITY VERIFICATION COMPLETED USING TWO (2) IDENTIFIERS: Name and Date of confirmed by patient verbally. FALL SCREENING: Has the patient had 2 falls in the last year or 1 fall with injury or currently using an Ambulatory Assistive Device (Walker, Cane, Wheelchair, Crutches, etc.)? No PATIENT GENDER DATA: Female. status: : No status: NO. PATIENT RELEVANT IMPLANT DATA REVIEWED: Not Applicable RADIOLOGY DEPARTMENT: Mammography PERIPHERAL IV DATA: Not applicable SIGNED BY: RT Christina(R) June 25, 2022 12:48 PM [facility] 06-25-2022 History of Presen t illness Narrative Radiology Service Progress Note PATIENT NAME: Lucian Mott DATE OF SERVICE: June 25, 2022 TIME: 12:48 PM PATIENT IDENTITY VERIFICATION COMPLETED USING TWO (2) IDENTIFIERS: Name and Date of confirmed by patient verbally. FALL SCREENING: Has the patient had 2 falls in the last year or 1 fall with injury or currently using an Ambulatory Assistive Device (Walker, Cane, Wheelchair, Crutches, etc.)? No PATIENT GENDER DATA: Female. status: : No status: NO. PATIENT RELEVANT IMPLANT DATA REVIEWED: Not Applicable RADIOLOGY DEPARTMENT: Mammography PERIPHERAL IV DATA: Not applicable SIGNED BY: RT Christina(R) June 25, 2022 12:48 PM documented in this encounter [facility] 11-27-2021 Miscellaneous Notes Received lab results from Zarina. To SW to review. Sona Eddy RN documented in this encounter [facility] 11-19-2021 History of Presen t illness Narrative Lucian is a 41 year old who presents for an annual gynecologic exam without complaints. Needs blood work for work. Some vaginal discharge that is tang in color. Has had BV in the past. Menses: cycles every 28-30 days and 5-6 days of flow. Contraception: none. Would be happy if she were to get HPV vaccine: N/A Last Pap: 12/25/2016 normal HPV: 12/24/2016 negative History of abnormal pap: Yes colposcopy. No prior LEEP or CKC Last mammogram: 2018 - normal. Right breat lump removed Sexually active: Yes Patient concerns for STD exposure: No. OB History T2 L3 SAB0 IAB0 Ectopic0 Multiple1 Live Births3 Comment: Kate, Linoleum Installer History LMP: 07/31/2017, Having periods Age at Menarche: Age at First : Age at Menopause: Linoleum Installer History Comments: Sexual Activity: Yes; Male Contraception: None PAST MEDICAL HISTORY Diagnosis Date Abnormal glandular Papanicolaou smear of cervix 2005 Abn. Pap smear (cervix) Adjustment disorder with depressed mood Breast disorder Mononucleosis depression Rh negative state in antepartum period 06/12/2014 PAST SURGICAL HISTORY Procedure Laterality Date DELIVERY ONLY 11/06/10 , low transverse COLPOSCOPY (VAGINOSCOPY) 2005 Colposcopy EXCIS BREAST LESION 11/18/06 left UNSPECIFIED ORAL SURGERY PROCEDURE, BY REPORT wisdom teeth removed. FAMILY HISTORY Problem Relation Age of Onset other (Endometrosis) Mother Lipids Father High Cholesterol Cancer Maternal Grandmother lung Cataract Maternal Grandmother other (BRAIN TUMOR) Maternal Grandmother Coronary Artery Disease Maternal Grandfather Cataract Maternal Grandfather Alzheimer's Disease Paternal Grandmother Coronary Artery Disease Paternal Grandfather SOCIAL HISTORY Social History Tobacco Use Smoking status: Former Packs/day: 0.25 Years: 1.00 Pack years: 0.25 Types: Cigarettes Smokeless tobacco: Never Tobacco comments: quit about 4-5 yrs. ago. around the age of 21 Substance Use Topics Alcohol use: No Drug use: No REVIEW OF SYSTEMS Abdomen: No abdominal pain, nausea, vomiting, diarrhea, or constipation. No bloating, early satiety, indigestion, or increased flatulence. Bladder: No dysuria, gross hematuria, urinary frequency, urinary urgency, or incontinence. Breast: No breast lumps, nipple d/c, overlying skin changes, redness or skin retraction. Allergies and current medication updated:Yes EXAM: LMP 07/31/2017 GENERAL: pleasant, female in no apparent distress HEENT: Normocephalic, atraumatic, mucus membranes moist, and no lesions NECK: full range of motion DERMATOLOGY: Normal, without lesions, non-icteric, and non-hirsute BREAST: soft, non-tender, symmetric, no dominant mass, normal nipple-areolar complex, no lymphadenopathy, and no nipple discharge CHEST: Normal inspiratory effort ABDOMEN: soft, non-tender, and no masses PELVIC: external genitalia normal, normal Bartholin's glands, urethra, [place]'s glands, no vulvar lesions, no cervical lesions, good vaginal support, normal appearing perineal body and perianal region, thin tang discharge present BIMANUAL: uterus normal size, shape and consistency, no adnexal masses, and non-tender RECTOVAGINAL: deferred. NEURO: exam grossly non-focal EXTREMITIES: normal ASSESSMENT/PLAN: 1) Health maintenance: Pap/HPV today. Mammogram starting age 40. Nutrition, exercise and routine health maintenance exams reviewed. Labs ordered per pt request for work. 2) Contraception: none. Contraceptive options reviewed and information provided. Discussed risk of AMA and questions answered. Not interested in seeking infertility workup or treatment, but would be happy if conceived at this time. 3) STD screening: Accepts workup for BV/yeast/trich. 4) Follow up one year or sooner as needed Tiki Fox DO documented in this encounter [facility] 11-09-2014 History of Past i llness Narrative Problem Noted Date Resolved Date Benign gestational thromb[facility] in [facility] 11/09/2014 01/16/2015 Overview: November 09, 2014 PLT 114 Gian Sargent MD Low lying placenta, antepartum 10/11/2014 1 03/18/2014 Overview: Baby A low lying anterior placenta- recommend MFM consult for evaluation to rule out accreta November 09, 2014 formal US w/ MFM, no evidence of previa or accreta Gian Sargent MD Supervision of high risk in third trim [facility] 10/11/2014 11/09/2014 Overview: Boy and girl Rh negative state in antepartum period 5 01/16/2015 Supervision of other normal 05/30/2014 10/11/2014 History of delivery 05/30/201401/2015 Overview: May 30, 2014 leaning towards repeat c/s since twins. Will rediscuss later. Gian Sargent MD November 09, 2014 Risks/benefits/alternatives discussed with patient regarding trial of labor and potential for uterine rupture. Risks include but are not limited to maternal hemorrhage, risk of injury to adjacent organs including potential hysterectomy. risks discussed as well, including potential for permanent neurologic injury or . Overall uterine rupture risk is less than 1% after one section. Is a trial of labor contraindicated for this patient? No If no, calculate rate of success using pre-labor factors: http://[email or web address]/[email or web address].html Predicted chance of vaginal after : Patient's plan for delivery mode: Trial of labor if enters labor on her own, would not be very keen on induction Gian Sargent MD Dichorionic diamniotic twin , antepartu 05/30/2014 01/16/2015 Overview: di/di twins September 23, 2014 AGA x 2, symmetrical. Fetus 1 breech. US reviewed and scanned. Gian Sargent MD Supervision of normal first 05/19/2010 09/28/2011 Threatened , antepartum 05/19/2010 09/28/2011 Papanicolaou smear of cervix with atypical squamous cells of undetermined significance (ASC-US) 02/22/2006 05/30/2014 Cervical high risk human pap illomavirus (HPV) DNA test positive 02/22/2006 05/30/2014 Allergic rhinitis, cause unspecified 07/06/2005 05/30/2014 documented as of this encounter (statuses as of 11/19/2021) [facility] History of Past illness Narrative* Problem Noted Date Resolved Date Benign gestational thrombocytopenia in [facility] 11/09/2014 01/16/2015 Overview: November 09, 2014 PLT 114 Gian Sargent MD Low lying placenta, antepartum 10/11/2014 1 03/18/2014 Overview: Baby A low lying anterior placenta- recommend MFM consult for evaluation to rule out accreta November 09, 2014 formal US w/ MFM, no evidence of previa or accreta Gian Sargent MD Supervision of high risk in [facility] 10/11/2014 11/09/2014 Overview: Boy and girl Rh negative state in antepartum period 5 01/16/2015 Supervision of other normal 05/30/2014 10/11/2014 History of delivery 05/30/201401/2015 Overview: May 30, 2014 leaning towards repeat c/s since twins. Will rediscuss later. Gian Sargent MD November 09, 2014 Risks/benefits/alternatives discussed with patient regarding trial of labor and potential for uterine rupture. Risks include but are not limited to maternal hemorrhage, risk of injury to adjacent organs including potential hysterectomy. risks discussed as well, including potential for permanent neurologic injury or . Overall uterine rupture risk is less than 1% after one section. Is a trial of labor contraindicated for this patient? No If no, calculate rate of success using pre-labor factors: http://[email or web address].html Predicted chance of vaginal after : Patient's plan for delivery mode: Trial of labor if enters labor on her own, would not be very keen on induction Gian Sargent MD Dichorionic diamniotic twin , antepartu m 05/30/2014 01/16/2015 Overview: di/di twins September 23, 2014 AGA x 2, symmetrical. Fetus 1 breech. US reviewed and scanned. Gian Sargent MD Supervision of normal first 05/19/2010 09/28/2011 Threatened , antepartum 05/19/2010 09/28/2011 Papanicolaou smear of cervix with atypical squamous cells of undetermined significance (ASC-US) 02/22/2006 05/30/2014 Cervical high risk human pap illomavirus (HPV) DNA test positive 02/22/2006 05/30/2014 Allergic rhinitis, cause unspecified 07/06/2005 05/30/2014 documented as of this encounter (statuses as of 12/04/2021) [facility] History of Past illness Narrative* Problem Noted Date Resolved Date Benign gestational thrombocytopenia in third [facility] 11/09/2014 01/16/2015 Overview: November 09, 2014 PLT 114 Gian Sargent MD Low lying placenta, antepartum 10/11/2014 1 03/18/2014 Overview: Baby A low lying anterior placenta- recommend MFM consult for evaluation to rule out accreta November 09, 2014 formal US w/ MFM, no evidence of previa or accreta Gian Sargent MD Supervision of high risk in third trim jamin 10/11/2014 11/09/2014 Overview: Boy and girl Rh negative state in antepartum period 5 01/16/2015 Supervision of other normal 05/30/2014 10/11/2014 History of delivery 05/30/201401/2015 Overview: May 30, 2014 leaning towards repeat c/s since twins. Will rediscuss later. Gian Sargent MD November 09, 2014 Risks/benefits/alternatives discussed with patient regarding trial of labor and potential for uterine rupture. Risks include but are not limited to maternal hemorrhage, risk of injury to adjacent organs including potential hysterectomy. risks discussed as well, including potential for permanent neurologic injury or . Overall uterine rupture risk is less than 1% after one section. Is a trial of labor contraindicated for this patient? No If no, calculate rate of success using pre-labor factors: http://[email or web address]/[email or web address].html Predicted chance of vaginal after : Patient's plan for delivery mode: Trial of labor if enters labor on her own, would not be very keen on induction Gian Sargent MD Dichorionic diamniotic twin , antepartu m 05/30/2014 01/16/2015 Overview: di/di twins September 23, 2014 AGA x 2, symmetrical. Fetus 1 breech. US reviewed and scanned. Gian Sargent MD Supervision of normal first 05/19/2010 09/28/2011 Threatened , antepartum 05/19/2010 09/28/2011 Papanicolaou smear of cervix with atypical squamous cells of undetermined significance (ASC-US) 02/22/2006 05/30/2014 Cervical high risk human pap illomavirus (HPV) DNA test positive 02/22/2006 05/30/2014 Allergic rhinitis, cause unspecified 07/06/2005 05/30/2014 documented as of this encounter (statuses as of 06/30/2022) [facility] History of Past illness Narrative* Problem Noted Date Diagnosed Date Resolved Date Benign gestational thrombocy topenia in third trimester 11/09/2014 01/16/2015 Overview: November 09, 2014 PLT 114 Gian Sargent MD Low lying placenta, antepartum 10/11/2014 01/16/2015 Overview: Baby A low lying anterior placenta- recommend MFM consult for evaluation to rule out accreta November 09, 2014 formal US w/ MFM, no evidence of previa or accreta Gian Sargent MD Supervision of high risk pre gnancy in third trimester 10/11/2014 11/09/2014 Overview: Boy and girl Rh negative state in antepartum period 06/12/2014 01/16/2015 Supervision of other normal 05/30/2014 10/11/2014 History of delivery 05/30/2014 01/16/2015 Overview: May 30, 2014 leaning towards repeat c/s since twins. Will rediscuss later. Gian Sargent MD November 09, 2014 Risks/benefits/alternatives discussed with patient regarding trial of labor and potential for uterine rupture. Risks include but are not limited to maternal hemorrhage, risk of injury to adjacent organs including potential hysterectomy. risks discussed as well, including potential for permanent neurologic injury or . Overall uterine rupture risk is less than 1% after one section. Is a trial of labor contraindicated for this patient? No If no, calculate rate of success using pre-labor factors: http://[email or web address]/[email or web address].html Predicted chance of vaginal after : Patient's plan for delivery mode: Trial of labor if enters labor on her own, would not be very keen on induction Gian Sargent MD Dichorionic diamniotic twin , antepartum 05/30/2014 01/16/2015 Overview: di/di twins September 23, 2014 AGA x 2, symmetrical. Fetus 1 breech. US reviewed and scanned. Gian Sargent MD Supervision of normal first 05/19/2010 09/28/2011 Threatened , antepartum 05/19/2010 09/28/2011 Papanicolaou smear of cervix with atypical squamous cells of undetermined significance (ASC-US) 02/22/2006 05/30/2014 Cervical high risk human pap illomavirus (HPV) DNA test positive 02/22/2006 05/30/2014 Allergic rhinitis, cause unspecified 07/06/2005 05/30/2014 documented as of this encounter (statuses as of 01/10/2023) [facility] History of Past illness Narrative* Problem Noted Date Diagnosed Date Resolved Date Benign gestational thrombocy topenia in third trimester 11/09/2014 01/16/2015 Overview: November 09, 2014 PLT 114 Gian Sargent MD Low lying placenta, antepartum 10/11/2014 01/16/2015 Overview: Baby A low lying anterior placenta- recommend MFM consult for evaluation to rule out accreta November 09, 2014 formal US w/ MFM, no evidence of previa or accreta Gian Sargent MD Supervision of high risk pre gnancy in third trimester 10/11/2014 11/09/2014 Overview: Boy and girl Rh negative state in antepartum period 06/12/2014 01/16/2015 Supervision of other normal 05/30/2014 10/11/2014 History of delivery 05/30/2014 01/16/2015 Overview: May 30, 2014 leaning towards repeat c/s since twins. Will rediscuss later. Gian Sargent MD November 09, 2014 Risks/benefits/alternatives discussed with patient regarding trial of labor and potential for uterine rupture. Risks include but are not limited to maternal hemorrhage, risk of injury to adjacent organs including potential hysterectomy. risks discussed as well, including potential for permanent neurologic injury or . Overall uterine rupture risk is less than 1% after one section. Is a trial of labor contraindicated for this patient? No If no, calculate rate of success using pre-labor factors: http://[email or web address]/[email or web address].html Predicted chance of vaginal after : Patient's plan for delivery mode: Trial of labor if enters labor on her own, would not be very keen on induction Gian Sargent MD Dichorionic diamniotic twin , antepartum 05/30/2014 01/16/2015 Overview: di/di twins September 23, 2014 AGA x 2, symmetrical. Fetus 1 breech. US reviewed and scanned. Gian Sargent MD Supervision of normal first 05/19/2010 09/28/2011 Threatened , antepartum 05/19/2010 09/28/2011 Papanicolaou smear of cervix with atypical squamous cells of undetermined significance (ASC-US) 02/22/2006 05/30/2014 Cervical high risk human pap illomavirus (HPV) DNA test positive 02/22/2006 05/30/2014 Allergic rhinitis, cause unspecified 07/06/2005 05/30/2014 documented as of this encounter (statuses as of 02/17/2023) [facility] History of Past illness Narrative* Problem Noted Date Diagnosed Date Resolved Date Benign gestational thrombocy topenia in third trimester 11/09/2014 01/16/2015 Overview: November 09, 2014 PLT 114 Gian Sargent MD Low lying placenta, antepartum 10/11/2014 01/16/2015 Overview: Baby A low lying anterior placenta- recommend MFM consult for evaluation to rule out accreta November 09, 2014 formal US w/ MFM, no evidence of previa or accreta Gian Sargent MD Supervision of high risk pre gnancy in third trimester 10/11/2014 11/09/2014 Overview: Boy and girl Rh negative state in antepartum period 06/12/2014 01/16/2015 Supervision of other normal 05/30/2014 10/11/2014 History of delivery 05/30/2014 01/16/2015 Overview: May 30, 2014 leaning towards repeat c/s since twins. Will rediscuss later. Gian Sargent MD November 09, 2014 Risks/benefits/alternatives discussed with patient regarding trial of labor and potential for uterine rupture. Risks include but are not limited to maternal hemorrhage, risk of injury to adjacent organs including potential hysterectomy. risks discussed as well, including potential for permanent neurologic injury or . Overall uterine rupture risk is less than 1% after one section. Is a trial of labor contraindicated for this patient? No If no, calculate rate of success using pre-labor factors: http://www.[email or web address]/[email or web address].html Predicted chance of vaginal after : Patient's plan for delivery mode: Trial of labor if enters labor on her own, would not be very keen on induction Gian Sargent MD Dichorionic diamniotic twin , antepartum 05/30/2014 01/16/2015 Overview: di/di twins September 23, 2014 AGA x 2, symmetrical. Fetus 1 breech. US reviewed and scanned. Gian Sargent MD Supervision of normal first 05/19/2010 09/28/2011 Threatened , antepartum 05/19/2010 09/28/2011 Papanicolaou smear of cervix with atypical squamous cells of undetermined significance (ASC-US) 02/22/2006 05/30/2014 Cervical high risk human pap illomavirus (HPV) DNA test positive 02/22/2006 05/30/2014 Allergic rhinitis, cause unspecified 07/06/2005 05/30/2014 documented as of this encounter (statuses as of 02/19/2023) [facility] History of Past illness Narrative* Problem Noted Date Diagnosed Date Resolved Date Benign gestational thrombocy topenia in third trimester 11/09/2014 01/16/2015 Overview: November 09, 2014 PLT 114 Gian Sargent MD Low lying placenta, antepartum 10/11/2014 01/16/2015 Overview: Baby A low lying anterior placenta- recommend MFM consult for evaluation to rule out accreta November 09, 2014 formal US w/ MFM, no evidence of previa or accreta Gian Sargent MD Supervision of high risk pre gnancy in third trimester 10/11/2014 11/09/2014 Overview: Boy and girl Rh negative state in antepartum period 06/12/2014 01/16/2015 Supervision of other normal 05/30/2014 10/11/2014 History of delivery 05/30/2014 01/16/2015 Overview: May 30, 2014 leaning towards repeat c/s since twins. Will rediscuss later. Gian Sargent MD November 09, 2014 Risks/benefits/alternatives discussed with patient regarding trial of labor and potential for uterine rupture. Risks include but are not limited to maternal hemorrhage, risk of injury to adjacent organs including potential hysterectomy. risks discussed as well, including potential for permanent neurologic injury or . Overall uterine rupture risk is less than 1% after one section. Is a trial of labor contraindicated for this patient? No If no, calculate rate of success using pre-labor factors: http://www.[email or web address]/[email or web address].html Predicted chance of vaginal after : Patient's plan for delivery mode: Trial of labor if enters labor on her own, would not be very keen on induction Gian Sargent MD Dichorionic diamniotic twin , antepartum 05/30/2014 01/16/2015 Overview: di/di twins September 23, 2014 AGA x 2, symmetrical. Fetus 1 breech. US reviewed and scanned. Gian Sargent MD Supervision of normal first 05/19/2010 09/28/2011 Threatened , antepartum 05/19/2010 09/28/2011 Papanicolaou smear of cervix with atypical squamous cells of undetermined significance (ASC-US) 02/22/2006 05/30/2014 Cervical high risk human pap illomavirus (HPV) DNA test positive 02/22/2006 05/30/2014 Allergic rhinitis, cause unspecified 07/06/2005 05/30/2014 documented as of this encounter (statuses as of 06/11/2023) [facility] History of Past illness Narrative* Problem Noted Date Diagnosed Date Resolved Date Benign gestational thrombocy topenia in third trimester 11/09/2014 01/16/2015 Overview: November 09, 2014 PLT 114 Gian Sargent MD Low lying placenta, antepartum 10/11/2014 01/16/2015 Overview: Baby A low lying anterior placenta- recommend MFM consult for evaluation to rule out accreta November 09, 2014 formal US w/ MFM, no evidence of previa or accreta Gian Sargent MD Supervision of high risk pre gnancy in third trimester 10/11/2014 11/09/2014 Overview: Boy and girl Rh negative state in antepartum period 06/12/2014 01/16/2015 Supervision of other normal 05/30/2014 10/11/2014 History of delivery 05/30/2014 01/16/2015 Overview: May 30, 2014 leaning towards repeat c/s since twins. Will rediscuss later. Gian Sargent MD November 09, 2014 Risks/benefits/alternatives discussed with patient regarding trial of labor and potential for uterine rupture. Risks include but are not limited to maternal hemorrhage, risk of injury to adjacent organs including potential hysterectomy. risks discussed as well, including potential for permanent neurologic injury or . Overall uterine rupture risk is less than 1% after one section. Is a trial of labor contraindicated for this patient? No If no, calculate rate of success using pre-labor factors: http://[email or web address]/[email or web address].html Predicted chance of vaginal after : Patient's plan for delivery mode: Trial of labor if enters labor on her own, would not be very keen on induction Gian Sargent MD Dichorionic diamniotic twin , antepartum 05/30/2014 01/16/2015 Overview: di/di twins September 23, 2014 AGA x 2, symmetrical. Fetus 1 breech. US reviewed and scanned. Gian Sargent MD Supervision of normal first 05/19/2010 09/28/2011 Threatened , antepartum 05/19/2010 09/28/2011 Papanicolaou smear of cervix with atypical squamous cells of undetermined significance (ASC-US) 02/22/2006 05/30/2014 Cervical high risk human pap illomavirus (HPV) DNA test positive 02/22/2006 05/30/2014 Allergic rhinitis, cause unspecified 07/06/2005 05/30/2014 documented as of this encounter (statuses as of 06/22/2023) [facility] History of Past illness Narrative* Problem Noted Date Diagnosed Date Resolved Date Benign gestational thrombocy topenia in third trimester 11/09/2014 01/16/2015 Overview: November 09, 2014 PLT 114 Gian Sargent MD Low lying placenta, antepartum 10/11/2014 01/16/2015 Overview: Baby A low lying anterior placenta- recommend MFM consult for evaluation to rule out accreta November 09, 2014 formal US w/ MFM, no evidence of previa or accreta Gian Sargent MD Supervision of high risk pre gnancy in third trimester 10/11/2014 11/09/2014 Overview: Boy and girl Rh negative state in antepartum period 06/12/2014 01/16/2015 Supervision of other normal 05/30/2014 10/11/2014 History of delivery 05/30/2014 01/16/2015 Overview: May 30, 2014 leaning towards repeat c/s since twins. Will rediscuss later. Gian Sargent MD November 09, 2014 Risks/benefits/alternatives discussed with patient regarding trial of labor and potential for uterine rupture. Risks include but are not limited to maternal hemorrhage, risk of injury to adjacent organs including potential hysterectomy. risks discussed as well, including potential for permanent neurologic injury or . Overall uterine rupture risk is less than 1% after one section. Is a trial of labor contraindicated for this patient? No If no, calculate rate of success using pre-labor factors: http://www.[email or web address]/[email or web address].html Predicted chance of vaginal after : Patient's plan for delivery mode: Trial of labor if enters labor on her own, would not be very keen on induction Gian Sargent MD Dichorionic diamniotic twin , antepartum 05/30/2014 01/16/2015 Overview: di/di twins September 23, 2014 AGA x 2, symmetrical. Fetus 1 breech. US reviewed and scanned. Gian Sargent MD Supervision of normal first 05/19/2010 09/28/2011 Threatened , antepartum 05/19/2010 09/28/2011 Papanicolaou smear of cervix with atypical squamous cells of undetermined significance (ASC-US) 02/22/2006 05/30/2014 Cervical high risk human pap illomavirus (HPV) DNA test positive 02/22/2006 05/30/2014 Allergic rhinitis, cause unspecified 07/06/2005 05/30/2014 documented as of this encounter (statuses as of 06/22/2023) [facility] History of Past illness Narrative* Problem Noted Date Diagnosed Date Resolved Date Benign gestational thrombocy topenia in third trimester 11/09/2014 01/16/2015 Overview: November 09, 2014 PLT 114 Gian Sargent MD Low lying placenta, antepartum 10/11/2014 01/16/2015 Overview: Baby A low lying anterior placenta- recommend MFM consult for evaluation to rule out accreta November 09, 2014 formal US w/ MFM, no evidence of previa or accreta Gian Sargent MD Supervision of high risk pre gnancy in third trimester 10/11/2014 11/09/2014 Overview: Boy and girl Rh negative state in antepartum period 06/12/2014 01/16/2015 Supervision of other normal 05/30/2014 10/11/2014 History of delivery 05/30/2014 01/16/2015 Overview: May 30, 2014 leaning towards repeat c/s since twins. Will rediscuss later. Gian Sargent MD November 09, 2014 Risks/benefits/alternatives discussed with patient regarding trial of labor and potential for uterine rupture. Risks include but are not limited to maternal hemorrhage, risk of injury to adjacent organs including potential hysterectomy. risks discussed as well, including potential for permanent neurologic injury or . Overall uterine rupture risk is less than 1% after one section. Is a trial of labor contraindicated for this patient? No If no, calculate rate of success using pre-labor factors: http://www.[email or web address]/[email or web address].html Predicted chance of vaginal after : Patient's plan for delivery mode: Trial of labor if enters labor on her own, would not be very keen on induction Gian Sargent MD Dichorionic diamniotic twin , antepartum 05/30/2014 01/16/2015 Overview: di/di twins September 23, 2014 AGA x 2, symmetrical. Fetus 1 breech. US reviewed and scanned. Gian Sargent MD Supervision of normal first 05/19/2010 09/28/2011 Threatened , antepartum 05/19/2010 09/28/2011 Papanicolaou smear of cervix with atypical squamous cells of undetermined significance (ASC-US) 02/22/2006 05/30/2014 Cervical high risk human pap illomavirus (HPV) DNA test positive 02/22/2006 05/30/2014 Allergic rhinitis, cause unspecified 07/06/2005 05/30/2014 documented as of this encounter (statuses as of 06/24/2023) [facility] No data available for this section [facility] Evaluation note* Diagnosis Encounter for gynecological examination (general) (routine) without abnormal findings- Primary Encounter for screening for human papillomavirus (HPV) Special screening examination for human papillomavirus (HPV) Encounter for screening mammogram for malignant neoplasm of breast Other screening mammogram Vaginal discharge Leukorrhea, not specified as infective [facility] Diagnosis Encounter for screening mammogram for malignant neoplasm of breast Other screening mammogram [facility] Diagnosis Pelvic pain in female Unspecified symptom associated with female genital organs [facility] Diagnosis RLQ abdominal pain- Primary Abdominal pain, right lower quadrant History of ovarian cyst Personal history of other genital system and obstetric disorders Family history of endometriosis in first degree relative Family history of other genitourinary diseases [facility] Diagnosis RLQ abdominal pain Abdominal pain, right lower quadrant documented in this encounter [facility] note* Diagnosis Encounter for screening mammogram for breast cancer [facility] No data available for this section [facility] Progress note No data available for this section [facility] Reason for referral (narrative)* Diagnostic Procedure Only (Routine) - Pending Review Specialty Diagnoses / Procedures Referred By Elian paze Referred To Contact [facility] Diagnoses Encounter for screening mammogram for malignant neoplasm of breast Procedures MANUEL SCREENING W TERENCE SCREENING DIGITAL BREAST TOMOSYNTHESIS BI SCREENING MAMMOGRAPHY BI 2-VIEW BREAST INC CAD Tiki Fox MD [address] [place] [address] [facility] [address] [place] [address] Referral ID Status Reason Start Date Expiration Date Visits Requested Visits Authorized [id number] Pending Review Auto-Generat ed Referral 11/19/2021 12/19/2022 1 1 [facility] for referral (narrative)* Diagnostic Procedure Only (Routine) - Authorized Specialty Diagnoses / Procedures Referred By Elian paez Referred To Contact [facility] Diagnoses RLQ abdominal pain Procedures PELVIC US WHI US PELVIC NONOBSTETRIC REAL-TIME IMAGE COMPLETE Tiki Fox MD [address] [place] [address] [facility] [address] [place] [address] Referral ID Status Reason Start Date Expiration Date Visits Requested Visits Authorized [id number] Authorized Auto-Generat ed Referral 06/21/2023 06/21/2023 1 1 [facility] for visit Narrative* Diagnostic Procedure Only (Routine) - Closed Specialty Diagnoses / Procedures Referred By Elian paez Referred To Contact [facility] Diagnoses Encounter for screening mammogram for breast cancer Procedures MANUEL SCREENING W TERENCE SCREENING DIGITAL BREAST TOMOSYNTHESIS BI SCREENING MAMMOGRAPHY BI 2-VIEW BREAST INC Tiki Guerrier MD [address] [place] [address] [facility] [address] [place] [address] Referral ID Status Reason Start Date Expiration Date V isits Requested Visits Authorized [id number] Closed Auto-Generate d Referral 01/29/2023 02/28/2024 1 1 [facility] Reason for Referral Specialty Diagnoses / Procedures Referred By Elian paez Referred To Contact [facility] Diagnoses Encounter for screening mammogram for malignant neoplasm of breast Procedures MANUEL SCREENING W TERENCE SCREENING DIGITAL BREAST TOMOSYNTHESIS BI SCREENING MAMMOGRAPHY BI 2-VIEW BREAST INC Tiki Guerrier MD [address] [place] [address] [facility] [address] [place] [address] Referral ID Status Reason Start Date Expiration Date V isits Requested Visits Authorized [id number] Closed Auto-Generate d Referral 06/25/2022 03/07/2023 1 1 Summary Purpose Family History No Family History Records Found No data available for this section No data available for this section No Family History Records Found Advance Directives No Advanced Directives Records FoundNo Advanced Directives Records Found Additional Source Comments Source Comments (unrecognize d section and content) In the event this informatio n is protected by the Federal Confidentiality of Alcohol and Drug Abuse Patient Records regulations: The Federal rules restrict any use of the information to criminally investigate or prosecute any alcohol or drug abuse patient.[facility] the event this information is protected by the Federal Confidentiality of Alcohol and Drug Abuse Patient Records regulations: The Federal rules restrict any use of the information to criminally investigate or prosecute any alcohol or drug abuse patient.[facility] the event this information is protected by the Federal Confidentiality of Alcohol and Drug Abuse Patient Records regulations: The Federal rules restrict any use of the information to criminally investigate or prosecute any alcohol or drug abuse patient.[facility] the event this information is protected by the Federal Confidentiality of Alcohol and Drug Abuse Patient Records regulations: The Federal rules restrict any use of the information to criminally investigate or prosecute any alcohol or drug abuse patient.[facility] the event this information is protected by the Federal Confidentiality of Alcohol and Drug Abuse Patient Records regulations: The Federal rules restrict any use of the information to criminally investigate or prosecute any alcohol or drug abuse patient.[facility] the event this information is protected by the Federal Confidentiality of Alcohol and Drug Abuse Patient Records regulations: The Federal rules restrict any use of the information to criminally investigate or prosecute any alcohol or drug abuse patient.[facility] Hospital[facility] the event this information is protected by the Federal Confidentiality of Alcohol and Drug Abuse Patient Records regulations: The Federal rules restrict any use of the information to criminally investigate or prosecute any alcohol or drug abuse patient.[facility] the event this information is protected by the Federal Confidentiality of Alcohol and Drug Abuse Patient Records regulations: The Federal rules restrict any use of the information to criminally investigate or prosecute any alcohol or drug abuse patient.[facility] the event this information is protected by the Federal Confidentiality of Alcohol and Drug Abuse Patient Records regulations: The Federal rules restrict any use of the information to criminally investigate or prosecute any alcohol or drug abuse patient.[facility] the event this information is protected by the Federal Confidentiality of Alcohol and Drug Abuse Patient Records regulations: The Federal rules restrict any use of the information to criminally investigate or prosecute any alcohol or drug abuse patient.[facility] Reason for Visit (unrecogniz ed section and content) Reason Comments Well Woman Reason Comments Received Outside Medical Records Specialty Diagnoses / Procedures Referred By Elian paez Referred To Contact [facility] Diagnoses Encounter for screening mammogram for malignant neoplasm of breast Procedures MANUEL SCREENING W TERENCE SCREENING DIGITAL BREAST TOMOSYNTHESIS BI SCREENING MAMMOGRAPHY BI 2-VIEW BREAST INC CAD Tiki Fox MD [address] [place] [address] [facility] [address] [place] [address] Referral ID Status Reason Start Date Expiration Date V isits Requested Visits Authorized [id number] Closed Auto-Generate d Referral 06/25/2022 03/07/2023 1 1 Reason Comments Radiology US Specialty Diagnoses / Procedures Referred By Elian paez Referred To Contact [facility] Diagnoses Pelvic pain in female Procedures US FEMALE PELVIS TRANSVAG US TRANSVAGINAL Tiki Fox MD [address] [place] [address] [place] [address] Referral ID Status Reason Start Date Expiration Date V isits Requested Visits Authorized [id number] Closed Auto-Generate d Referral 01/29/2023 02/28/2024 1 1 Reason Comments Ultrasound results Reason Comments Follow Up Right lower quadrant pain Reason Comments Pelvic Pain Specialty Diagnoses / Procedures Referred By Elian paez Referred To Contact [facility] Diagnoses RLQ abdominal pain Procedures PELVIC US WHI US PELVIC NONOBSTETRIC REAL-TIME IMAGE COMPLETE Tiki Fox MD [address] [place] [address] [facility] [address] [place] [address] Referral ID Status Reason Start Date Expiration Date V isits Requested Visits Authorized [id number] Closed Auto-Generate d Referral 06/21/2023 06/21/2023 1 1 Care Teams (unrecognized sec tion and content) Adon Relationship Specialty Start Date End Date Hugh Edmonds MD [address] [facility], [place] [id number] PCP - General 12/24/08 Adon Relationship Specialty Start Date End Date Hugh Edmonds MD [address] [facility], [place] [id number] PCP - General 12/24/08 Adon Relationship Specialty Start Date End Date Hugh Edmonds MD [address] [place], [place] [phone] PCP - General 12/24/08 Adon Relationship Specialty Start Date End Date Hugh Edmonds MD [address] [place], [place] [address] PCP - General 12/24/08 Adon Relationship Specialty Start Date End Date Hugh Edmonds MD [address] [facility], [place] [address] PCP - General 12/24/08 Adon Relationship Specialty Start Date End Date Hugh Edmonds MD [address] [facility] [place], [place] [address] PCP - General 12/24/08 Adon Relationship Specialty Start Date End Date Hugh Edmonds MD [address] [place], [place] [id number] [phone] PCP - General 12/24/08 Adon Relationship Specialty Start Date End Date Hugh Edmonds MD [address] [place], [place] [address] PCP - General 12/24/08 Adon Relationship Specialty Start Date End Date Hugh Edmonds MD [address] [place], [place] [id number] PCP - General 12/24/08 Adon Relationship Specialty Start Date End Date Hugh Edmonds MD [address] [place], [place] [phone] PCP - General 12/24/08 Care Team (unrecognized sect ion and content) Care Team Personnel Name: JOAQUIM BOSWELL Position: P4 Advanced Practice Nurse Med Service: Active Provider Member Role: Primary Care Physician Address: Address: [address] [place] [address] Care Team Related Persons Name: ASK, ASK Care Team Personnel Name: JOAQUIM BOSWELL Position: P4 Advanced Practice Nurse Member Role: Primary Care Physician Address: Address: [address] [place] [address] Care Team Related Persons Name: ASK, ASK INFORMATION SOURCE (unrecogn ized section and content) DATE CREATED AUTHOR 06/24/2023 [facility] DATE CREATED AUTHOR AUTHOR'S AMITAIZ ATION 11/10/2023 [facility], [facility] ([place] FOR RECORDS PERTAINING TO PATIENTS WHO ARE OR HAVE BEEN ENROLLED IN A CHEMICAL DEPENDENCY/SUBSTANCEABUSE PROGRAM, SOME INFORMATION MAY BE OMITTED. This clinical summary was aggregated from multiple sources. Caution should be exercised in using it in the provision of clinical care. This summary normalizes information from multiple sources, and as a consequence, information in this document may materially change the coding, format and clinical context of patient data. In addition, data may be omitted in some cases. CLINICAL DECISIONS SHOULD BE BASED ON THE PRIMARY CLINICAL RECORDS. [employer] [facility] provides no warranty or guarantee of the accuracy or completeness of information in this document.
--- NOTE | 2023-12-31 07:09 | CT_ITS ---
STUDY: CT ABDOMEN AND PELVIS WITH CONTRAST REASON FOR EXAM: Female, 43 years old. Continued diarrhea RADIATION DOSAGE (If Supplied By Facility): CTDIvol = ( 15.59 ) mGy, DLP = ( 949.61 ) mGycm TECHNIQUE: Transaxial images were obtained from the dome of the diaphragm to the symphysis pubis with oral contrast. Oral and amp; IV Readi-CAT and amp; 100mL Isovue-370 was administered. Sagittal and coronal images were reconstructed. Individualized dose optimization techniques were used for this CT. COMPARISON: None. FINDINGS: The visualized lung bases are unremarkable. The visualized portions of the heart are within normal limits. Normal liver. Normal gallbladder and extrahepatic biliary system. Normal spleen. Normal pancreas. Normal bilateral adrenal glands. Normal right kidney. Normal left kidney. Normal visualized stomach. Normal small intestine. Normal colon. The appendix is visualized and appears normal. Normal abdominal aorta. Normal inferior vena cava. Normal retroperitoneum. Normal urinary bladder. There is a 3.3 cm x 3.2 cm cyst in the right ovary. Small follicles are seen in the left ovary. There is evidence of diastases of the abdominal rectus muscle. Straightening of the normal lumbar lordosis. CT/Abdomen/Pelvis WITH Contrast IMPRESSION: 3.3 cm x 3.2 cm cyst in the right ovary. Small follicles are seen in the left ovary. Diastases of the rectus abdominal muscles. Electronically Signed: Anuj Rivera MD at 14:10 EDT ,
== END | disposition home or self-care (01) ==
LOC: CT 07:03
PROVIDERS: PCP Registered Nurse
DX: R19.7 Diarrhea, unspecified (principal)
CPT/HCPCS: 74177; Q9967

== ENCOUNTER 2024-04-06 05:48 | Day surgery (SDC) | payer BC, SELFPAY ==
--- NOTE | 2024-04-06 06:30 | COLBX_PTH ---
PATIENT: LUCIAN MOTT LOC: EN U#:[id number] AGE/SX: 43/F ROOM: RE04/06/[address]: Dr. Reggie Santana DO : 1980 BED: DIS: 04/06/2024 SPEC #: [id number] RECD: 04/06/24 14:45 STATUS: AMADO LITO #: [id number] BECKA: 04/06/24 06:[address]: Reggie Santana DEPT: SURGICAL PATHOLOGY RECD BY: Shena Haley ENTERED: 04/07/24 08:39 SP TYPE: COLON BX OTHR DR: Seema Dial, OPERATOR LIGHTS-C Tissues: A - Ileum, NOS B - COLON BIOPSY Procedures: Surgery Specimen Level IV HEADER OPERATION: Colonoscopy, biopsy PRE-OP DIAGNOSIS: Abdominal cramping, diarrhea, fecal urgency TISSUE SUBMITTED: A- Terminal ileum biopsy, B- Random colonic biopsy MICROSCOPIC DIAGNOSIS A: Terminal Ileum, Biopsy: 1. Small intestinal mucosa with no ileitis, polyps, or dysplasia B: Colon, Biopsy: 1. Colonic mucosa with no cryptitis, crypt abscesses, polyps or dysplasia , 04/10/2024 MICROSCOPIC DESCRIPTION Slides are reviewed. GROSS DESCRIPTION A. Received in fixative is one container labeled with the patient's name and designated Terminal ileum biopsy. The specimen consists of multiple irregular fragments of light tang soft tissue that in aggregate measure 0.8 x 0.6 x 0.1 cm. The specimen is totally submitted in one cassette. B. Received in fixative is one container labeled with the patient's name and designated Random colonic biopsy. The specimen consists of one irregular fragment of light tang soft tissue that measures 0.6 x 0.5 x 0.1 cm. The specimen is totally submitted in one cassette. 04/07/2024 TC:4 CPT:76846b9
--- NOTE | 2024-04-06 06:32 | PCM.PRE.AN2 ---
ASA Classification* ASA Classification ASA Classification: 1 Assessment & Plan Anesthesia* Anesthesia Assessment Anesthesia Assessment: Discussed sedation and/or anesthesia options, risks, benefits, and alternatives with patient/parents/legal guardian/POA. Questions invited. The patient/parents/legal guardian/POA seems to understand and agrees to proceed with anesthesia plan. Reviewed the physical assessment, medical history, allergy history and patient home medications list prior to surgery/procedure/anesthetic and documented any changes. Performed airway and anesthesia risk assessments. Anesthesia Type Anesthesia Type: MAC History Source History Obtained from:: Patient and Chart Anesthesia Focused Assessment* Oxygen Delivery Method: Room Air Airway Assessment Mouth opens: >3 cm Mallampati Score: I Teeth Condition: Intact Neck Range of motion (ROM): Full ROM Focused Labs Anesthesia Preop lab: CBC WBC 6.6 K/mm3 (4.4-11.0) 11/23/23 15:00 11/23/23 RBC 4.62 M/mm3 (4.2-5.4) 11/23/23 15:00 11/23/23 Hgb 13.5 g/dL (12.0-15.0) 11/23/23 15:00 11/23/23 Hct 41.2 % (37-47) 11/23/23 15:00 11/23/23 Plt Count 194 K/mm3 (150-450) 11/23/23 15:00 11/23/23 CHEMISTRY Potassium 3.6 mmol/L (3.5-5.1) 11/23/23 15:00 11/23/23 Sodium 138 mmol/L (136-145) 11/23/23 15:00 11/23/23 Phosphorus 3.7 mg/dL (2.5-4.9) 07/26/17 07:41 07/26/17 BUN 14 mg/dL (7-18) 11/23/23 15:00 11/23/23 Creatinine 0.88 mg/dL (0.55-1.02) 11/23/23 15:00 11/23/23 Glucose 92 mg/dL (74-106) 11/23/23 15:00 11/23/23 TSH 0.888 uIU/mL (0.358-3.740) 11/23/23 15:00 11/23/23 COAG HCG, Quant 5341 mIU/mL (<9 non-preg) H 05/21/14 07:14 05/21/14 Pre-Assessment Diagnosis/Proposed Procedure Planned Operative Procedure(s): CSCOPE Anesthesia History Anesthesia History - display coordinator: Anesthesia History - display coordinator Hx Hospitalization No 04/05/24 10:44 Any Problems With Anesthesia No 04/05/24 10:44 Cholinesterase deficiency No 04/05/24 10:44 You/Your Family Experience No 04/05/24 10:44 fever (hyperthermia) with Relationship Recent Exposure to Contagious Disease Does patient have nerve No 04/05/24 10:44 stimulator Patient instructed to have device shut off --Does patient have Pacemaker or ICD? When Was Last Pacemaker Check QUESTION #4 FULL TEXT: You/Your Family Experience fever (hyperthermia) with Anesthesia Last Oral Intake Last Oral intake: Last Oral Intake NPO since Meds taken in AM with sips of water? Meds patient instructed to take am of surgery PONV PONV - display coordinator: PONV - display coordinator Female Yes 04/05/24 10:44 HX of Motion Sickness No 04/05/24 10:44 HX of N/V After Surgery No 04/05/24 10:44 Non-Smoker Yes 04/05/24 10:44 Duration of Surgery greater No 04/05/24 10:44 than 60 minutes Number of Risk Factors 2 04/05/24 10:44 PONV Score Moderate Risk 04/05/24 10:44 Height & Weight Height & Weight: Anesthesia: Height & Weight Height 5 ft 5 in 02/24/24 09:33 Respiratory Assessment Respiratory Assessment - display coordinator: Respiratory Tract Infection Hx - display coordinator Hx Respiratory Tract Infection No 04/05/24 10:44 STOP Sleep Apnea STOP Sleep Apnea - display coordinator: STOP Sleep Apnea - display coordinator Hx Hypertension No 04/05/24 10:44 Hx Sleep Apnea No 04/05/24 10:44 CPAP BIPAP Do you snore loudly (louder No 04/05/24 10:44 than talking or can be heard Do you often feel tired/ No 04/05/24 10:44 fatigued/ sleepy during daytime? Has anyone observed you stop No 04/05/24 10:44 breathing during sleep? STOP Results Negative 04/05/24 10:44 QUESTION #5 FULL TEXT : Do you snore loudly (louder than talking or can be heard through closed doors)? Tobacco Use History Tobacco Use History - display coordinator: Tobacco Use History - display coordinator Tobacco Use Smoking Status Never smoker 04/05/24 10:44 Hx Tobacco Use No 04/05/24 10:44 Years Smoking Packs Smoked per Day Smoking Cessation Date was within the last 15 years Hx Smoking Cessation Date Hx Smoking Cessation Counseling Hematologic Medial History Hematologic Hx - display coordinator: Hematologic Medical Hx - parole agent Hx of Blood Transfusion No 04/05/24 10:44 Hx of Transfusion in last 3 No 04/05/24 10:44 Months Date of Last Transfusion (if within last 3 months) Ever experience any problems No 04/05/24 10:44 with transfusion(s)? Specify any problems Hx of Preganancy in last 3 N/A 04/05/24 10:44 Months Nurse Filling Out Transfusion NBUCHER 04/05/24 10:44 & Questions: Date: 04/05/24 04/05/24 10:44 Time: 10:45 04/05/24 10:44 Patient unable to answer at this time (ie. confused, unrespo /Reproduction History /Reproductive History - display coordinator: /Reproductive Hx- display coordinator Hx Now No 04/05/24 10:44 Gestational Age (in weeks): EDC: Hx Hx Para Hx Section SAB No 04/05/24 10:44 [facility] Medical History Wears glasses Anxiety Migraine headache Non-smoker Edema of left lower extremity Seasonal allergies Depression Chronic diarrhea Home Medications ?Medication ?Instructions ?Recorded ?Last Taken ?Type cetirizine 10 mg tablet (Zyrtec) 10 mg PO DAILY 02/24/24 Unknown History calcium polycarbophil 625 mg 1,250 mg PO DAILY 04/05/24 Unknown History tablet (Fiber (calcium polycarbophil)) cholecalciferol (vitamin D3) 50 50 mcg PO DAILY 04/05/24 Unknown History mcg (2,000 unit) capsule (Vitamin D3) lactobacillus combination no.4 3 3,000 mmu cells PO DAILY 04/05/24 Unknown History billion cell capsule (Probiotic) Allergy/AdvReac Type Severity Reaction Status Date / Time Sulfa (Sulfonamide Allergy Hives Verified 04/05/24 10:41 Antibiotics) metoclopramide HCl (From AdvReac Other Verified 04/05/24 10:41 Reglan) Surgical History (Updated 04/05/24 @ 10:48 by Celeste Jackson) History of wisdom tooth extraction History of breast lump/mass excision History of Social History Smoking Status: Never smoker alcohol intake: current alcohol intake frequency: a few times a month Review of Systems (Anesthesia) ROS Narrative System reviewed and no additional complaints, except as documented.
--- NOTE | 2024-04-06 06:44 | HP.PCM_ITS ---
HPI - General General Date of Admission: 04/06/24 Date of Service: 04/06/24 Chief Complaint: diarrhea HPI Narrative LUCIAN MOTT, is a 43 F who presents today for the endoscopic evaluation diarrhea. She states that she is exposed to poultry and sheep, and has not changed the source of her water. Stool negative for enteric panel, Giardia, and cdiff. She denies nausea, vomiting, fever, chills, night sweats, abdominal pain, hematochezia, melena, excessive belching and flatulence. She reports occasional bloating around menses with mild cramping, denies pain. Denies sensitivities to certain food types, denies worsening symptoms due to particular foods. Reports diarrhea with extreme urgency in the morning, and tolerable urgency throughout the day, with 6-8 episodes per day. Reports an 8 pound weight loss, but has been actively trying to lose this. States that others in household do not have diarrhea. [facility] Medical History Wears glasses Anxiety Migraine headache Non-smoker Edema of left lower extremity Seasonal allergies Depression Chronic diarrhea Home Medications ?Medication ?Instructions ?Recorded ?Last Taken ?Type cetirizine 10 mg tablet (Zyrtec) 10 mg PO DAILY Unknown History calcium polycarbophil 625 mg 1,250 mg PO DAILY 5 Unknown History tablet (Fiber (calcium polycarbophil)) cholecalciferol (vitamin D3) 50 50 mcg PO DAILY Unknown History mcg (2,000 unit) capsule (Vitamin D3) lactobacillus combination no.4 3 3,000 mmu cells PO DA MARSHALL 04/05/24 Unknown History billion cell capsule (Probiotic) Allergy/AdvReac Type Severity Reaction Status Date / Time Sulfa (Sulfonamide Allergy Hives Verified 04/05/24 10:41 Antibiotics) metoclopramide HCl (From AdvReac Other Verified 04/05/24 10:41 Reglan) Surgical History History of wisdom tooth extraction History of breast lump/mass excision History of Social History Smoking Status: Never smoker alcohol intake: current alcohol intake frequency: a few times a month ROS Constitutional Constitutional: Denies fatigue, fever(s), poor appetite, weight gain or weight loss Gastrointestinal Gastrointestinal: Denies belching, bloating, change in bowel habits, change in stool character, chewing difficulty, coffee ground emesis, constipation, cramping, diarrhea, dyspepsia, dysphagia, early satiety, excessive flatus, fecal incontinence, heartburn, hematemesis, hematochezia, hemorrhoids, loose stools, melena, nausea, odynophagia, rectal bleeding, tenesmus, vomiting or weight changes Vital Signs Vital Signs Vital Signs: 04/06/24 06:33 Oxygen Delivery Method Room Air Physical Exam Const alert, oriented x3, no apparent distress and healthy appearing General Appearance: cooperative GI normal to inspection, nondistended, normoactive bowel sounds, soft to palpation, non-tender and non-distended Percussion: normal to percussion Rectal Exam: deferred Assessment & Plan Assessment/Plan (1) Abdominal cramping: (2) Diarrhea: (3) Fecal urgency: PLAN: Assessment and Plan Assessment and Plan (1) Diarrhea: Qualifiers: Diarrhea type: unspecified type Qualified Code(s): R19.7 - Diarrhea, unspecified Plan: LUCIAN MOTT, is a 43 F who presents to the office today for establishment with [facility] for complaints of diarrhea over the last 8 weeks. She states that she is exposed to poultry and sheep, and has not changed the source of her water. Differential diagnoses include: IBS-D, inflammatory post-infectious diarrhea, noninflammatory postinfectious diarrhea, colitis, less likely IBD. Enteric stool for infectious diarrhea negative from previous provider. Discussed starting colestipol to help symptoms, but she prefers to find out reason behind diarrhea before treating as it's tolerable. * order IBS/D panel, baseline CBC, CMP, ESR, CRP, thyroid levels, celiac panel * order stool for lactoferrin, pancreatic elastase, calprotectin * consider EGD/c-scope pending lab results * call with lab results Orders:
[2024-04-06 07:15] VITALS: BP 84/57; BP 99/65; PULSE 74; RESP 16; TEMP 36.5; O2SAT 99
--- NOTE | 2024-04-06 07:19 | OP.COLON_ITS ---
Patient Name: Ayanna Ballard Procedure Date: 04/06/2024 6:23 AM Date of : 1980 Age: 43 Procedure: Colonoscopy Indications: Clinically significant diarrhea of unexplained origin Providers: Reggie Santana DO Referring MD: Xu Kapadia Medicines: Monitored Anesthesia Care Patient Profile: This is a 43 year old female. Refer to note in patient chart for documentation of history and physical. Last Colonoscopy: none. The patient's first colonoscopy is today. Complications: No immediate complications. Procedure: Pre-Anesthesia Assessment: - Prior to the procedure, a History and Physical was performed, and patient medications and allergies were reviewed. The patient is competent. The risks and benefits of the procedure and the sedation options and risks were discussed with the patient. All questions were answered and informed consent was obtained. Patient identification and proposed procedure were verified by the physician. Mental Status Examination: normal. Airway Examination: normal oropharyngeal airway and neck mobility. Respiratory Examination: clear to auscultation. CV Examination: normal. Prophylactic Antibiotics: The patient does not require prophylactic antibiotics. Prior Anticoagulants: The patient has taken no anticoagulant or antiplatelet agents. ASA Grade Assessment: II - A patient with mild systemic disease. After reviewing the risks and benefits, the patient was deemed in satisfactory condition to undergo the procedure. The anesthesia plan was to use monitored anesthesia care (MAC). Immediately prior to administration of medications, the patient was re-assessed for adequacy to receive sedatives. The heart rate, respiratory rate, oxygen saturations, blood pressure, adequacy of pulmonary ventilation, and response to care were monitored throughout the procedure. The physical status of the patient was re-assessed after the procedure. After I obtained informed consent, the scope was passed under direct vision. Throughout the procedure, the patient's blood pressure, pulse, and oxygen saturations were monitored continuously. The Colonoscope was introduced through the anus and advanced to the terminal ileum. The colonoscopy was performed without difficulty. The patient tolerated the procedure well. The quality of the bowel preparation was adequate. The terminal ileum, ileocecal valve, appendiceal orifice, and rectum were photographed. Scope In: 6:56:36 AM Scope Withdrawal Time 0 hours 10 minutes 19 seconds Scope Out: 7:11:00 AM Total Procedure Duration Time 0 hours 14 minutes 24 seconds Findings: The perianal and digital rectal examinations were normal. The colon (entire examined portion) appeared normal. Biopsies were taken with a cold forceps for histology. Verification of patient identification for the specimen was done. Estimated blood loss was minimal. The terminal ileum appeared normal. Biopsies were taken with a cold forceps for histology. Verification of patient identification for the specimen was done. Estimated blood loss was minimal. Impression: - The entire examined colon is normal. Biopsied. - The examined portion of the ileum was normal. Biopsied. Recommendation: - Discharge patient to home. - Resume previous diet. - Continue present medications. - Await pathology results. - Repeat colonoscopy in 10 years for screening purposes. Procedure Code(s): --- Professional --- 00519, Colonoscopy, flexible; with biopsy, single or multiple CPT copyright 2021 [employer]. All rights reserved. The codes documented in this report are preliminary and upon electronic field service engineer review may be revised to meet current compliance requirements. Reggie Santana DO 04/06/2024 7:18:30 AM This report has been signed electronically. Number of Addenda: 0 Note Initiated On: 04/06/2024 6:23 AM
--- NOTE | 2024-04-06 07:19 | OP.CCLET_ITS ---
04/06/2024 Xu Kapadia Re : Colonoscopy procedure for Ayanna Ballard Dear Yojana This procedure was performed on March. My impressions and recommendations are as follows: Impressions : - The entire examined colon is normal. Biopsied. - The examined portion of the ileum was normal. Biopsied. Recommendations : - Discharge patient to home. - Resume previous diet. - Continue present medications. - Await pathology results. - Repeat colonoscopy in 10 years for screening purposes. My findings are described in the full procedure note, which is enclosed. If I can be of further assistance, please feel free to contact me at . Sincerely, Reggie Santana, 04/06/2024 7:18:30 AM This report has been signed electronically.
[2024-04-06 07:20] VITALS: BP 75/50; BP 99/65; PULSE 74; RESP 16; O2SAT 97
--- NOTE | 2024-04-06 07:20 | PCM.POST.ANE ---
Anesthesia: Postop Eval I Current Vital Signs Temperature: 97.7 F Pulse Rate: 74 Blood Pressure: 84/57 Respiratory Rate: 14 Pulse Ox: 100 Oxygen Delivery Method: Room Air Assessment Airway patent: Yes Spontaneous unlabored respirations: Yes Mental status: Asleep nausea: No Vomiting: No Anesthesia Complication: No Fluid Hydration Crystalloid volume administer (ml): 50 Total IV fluid infused: 50 Progress Note Anesthesia document: Postop Eval 1 completed: Yes
[2024-04-06 07:22] VITALS: BP 84/57; PULSE 74; RESP 14; TEMP 36.5; O2SAT 100
[2024-04-06 07:25] VITALS: BP 84/59; BP 99/65; PULSE 80; RESP 16; O2SAT 99
[2024-04-06 07:30] VITALS: BP 93/63; BP 99/65; PULSE 90; RESP 16; TEMP 37.3; O2SAT 100
[2024-04-06 07:50] VITALS: BP 99/65
[2024-04-06 08:56] LABS: Internal QC Validated? YES +Cl - CLEAR BKGD
[2024-04-06 08:57] LABS: Pregnancy, Urine Negative Negative
--- NOTE | 2024-04-06 11:34 | PCM.POSTANE2 ---
Anesthesia Postop Eval I Sum Postop Eval Completion status Anesthesia document: Postop Eval 1 completed: Yes Anesthesia Postop Eval I Summary Anesthesia Postop Eval I Summary: Anesthesia Postop Eval I: Assessment Summary Airway patent Yes 04/06/24 07:22 [email or web address] Spontaneous unlabored Yes 04/06/24 07:22 [email or web address] respirations Mental status Asleep 04/06/24 07:22 [email or web address] nausea No 04/06/24 07:22 [email or web address] Vomiting No 04/06/24 07:22 [email or web address] Anesthesia Postop Eval I: Fluid Summary Crystalloid volume administer 50 04/06/24 07:22 [email or web address] (ml) Colloids volume administered ( ml) Blood Product volume administered (ml) Total IV fluid infused 50 04/06/24 07:22 [email or web address] Anesthesia Postop Eval I: Summary Notes Anesthesia Complication No 04/06/24 07:22 [email or web address] Anesthesia Complication Comment: Post-operative progress note Anesthesia: Postop Eval II Evaluation Mental status: Awake and Calm Pain Level: 0 nausea: No Vomiting: No Complications Anesthesia Complication: No
== END 2024-04-06 08:01 | disposition home or self-care (01) ==
LOC: EN 06:33 → AC 06:35
PROVIDERS: Anesthesiology; PCP Registered Nurse; Referring Provider Registered Nurse; Visit Provider Internal Medicine Gastroenterology
PROC: 0DJD8ZZ Inspection of Lower Intestinal Tract, Via Natural or Artificial Opening Endoscopic (ICD-10-PCS; CPT 45378; principal; 2024-04-06 06:25)
DX: R19.7 Diarrhea, unspecified (principal); R10.9 Unspecified abdominal pain; R15.2 Fecal urgency
CPT/HCPCS: 45380; 81025; 88305; A4216; J2405

== ENCOUNTER → 2024-08-03 | Outpatient (CLI) | payer BC, SELFPAY ==
--- NOTE | 2024-08-03 14:07 | RAD_ITS ---
PROCEDURE: ABDOMEN SINGLE VIEW 08/03/2024 REASON FOR EXAM: R/O CONSTIPATION WITH OVERFLOW DIARRHEA TECHNIQUE: Single view abdomen. 2 total supine images to include the entire abdomen and pelvis FINDINGS: Moderate colonic stool ascending colon. No gaseous distention of bowel. Short segment of prominent small bowel loop left mid abdomen may represent focal ileus. Visualized lung bases appear clear. RAD/Abdomen Single View IMPRESSION: Moderate colonic stool ascending colon. No gaseous distention of bowel. Short segment of prominent small bowel loop le ft mid abdomen may represent focal ileus. Reading Location: [id number]
== END | disposition home or self-care (01) ==
LOC: RAD 14:01
PROVIDERS: PCP Registered Nurse; Referring Provider Nurse Practitioner Acute Care; Visit Provider Nurse Practitioner Acute Care
DX: R10.9 Unspecified abdominal pain (principal); R15.2 Fecal urgency
CPT/HCPCS: 74018